=== PATIENT | male | born 1980 | race Caucasian/White ===

== ENCOUNTER → 2016-08-01 | Outpatient (CLI) | payer OTHER ==
--- NOTE | 2016-08-01 10:56 | REP ---
URINARY TRACT SONOGRAPHY AND RENAL ARTERY DOPPLER FLOW STUDY: HISTORY: Hypertension. MORPHOLOGIC FINDINGS: Scanning at the level of the urinary bladder shows no abnormality. Renal cortical echogenicity pattern is normal and contours are smooth on both sides. There is no evidence of hydronephrosis, mass, cyst or calculus on either side. The right kidney measures 106 x 4.1 x 6.1 cm. The left renal dimensions are 12.2 x 5.4 x 5.9 cm. IMPRESSION: No significant morphologic abnormality. RENAL ARTERY DOPPLER FLOW STUDY: Peak systolic flow velocity in the abdominal aorta at the level of the main renal arteries is normal at 122 cm/s. Peak systolic flow velocity recorded in the left main renal artery is 87 cm/s and that in the right main renal artery is 110 cm/s. These values are normal. Renal to aortic flow velocity ratios are therefore normal at 0.9 on the right and 0.7 on the left. Visualization of the most proximal segment of each renal artery is limited by patient body habitus. Resistive indices and acceleration times are measured in the upper, mid and lower pole intralobar arteries of each kidney and these values are normal bilaterally. IMPRESSION: No Doppler evidence to suggest renal artery stenosis. Signed by Kris Martinez MD 08/01/2016 04:34 P
== END ==
LOC: M RAD 06:26
PROVIDERS: ATTEND Family Medicine
DX: I10 Essential (primary) hypertension (principal)

== ENCOUNTER → 2016-08-17 | Outpatient (REF) | payer OTHER | LOC: M LAB REF 12:50 | PROVIDERS: ATTEND Physician Assistant Medical | DX: J11.1 Influenza due to unidentified influenza virus with other respiratory manifestations (principal) ==

== ENCOUNTER → 2016-10-24 | Outpatient (CLI) | payer OTHER ==
[2016-10-24 14:41] LABS: ANION GAP 8 MEQ/L (8-16); BLOOD UREA NITROGEN 15 MG/DL (7-18); CALCIUM LEVEL 9.3 MG/DL (8.5-10.1); CARBON DIOXIDE LEVEL 27 MEQ/L (21-32); CHLORIDE LEVEL 105 MEQ/L (98-107); CREATININE FOR GFR 1.14 MG/DL (0.70-1.30); GLOMERULAR FILTRATION RATE > 60.0 (>60); GLUCOSE, FASTING 100 MG/DL (70-105); POTASSIUM SERUM 4.1 MEQ/L (3.5-5.1); SODIUM LEVEL 140 MEQ/L (136-145)
== END ==
LOC: M SMT 09:04
PROVIDERS: ATTEND Family Medicine
DX: I10 Essential (primary) hypertension (principal)

== ENCOUNTER → 2017-01-15 | Outpatient (CLI) | payer OTHER | LOC: M SLEEP 19:58 | PROVIDERS: ATTEND Nurse Practitioner Adult Health | DX: G47.33 Obstructive sleep apnea (adult) (pediatric) (principal) ==

== ENCOUNTER → 2017-02-15 | Outpatient (CLI) | payer OTHER ==
--- NOTE | 2017-02-21 20:36 | SLEEPCENT ---
DATE OF PROCEDURE: 02/15/2017 ORDERING PROVIDER: Chantell Cruz NP Nocturnal polysomnography was performed for the titration of pressure therapy in this patient with obstructive sleep apnea, apnea-hypopnea index of 11. For testing, the patient was fit with a Resp[employer]ics Abril View full face mask of large size. 4 cm of water pressure were applied to the circuit and the lights were extinguished. 7 hours and 54 minutes of data were reviewed. There were 435 minutes of sleep identified. Sleep latency was prolonged at 19 minutes. Rapid eye movement (REM) latency was normal at 75 minutes. Sleep architecture was good with four REM periods appreciated. Overall sleep efficiency was 92.4%. Patient's EKG showed a sinus rhythm with an average heart rate of 54 beats per minute. EEG showed normal wave forms for wake and sleep. Respiratory events were best palliated with CPAP at a pressure of +12. CPAP tolerance was good. There were a few limb movements noted. Remaining measures of sleep physiology were normal. IMPRESSION: Obstructive sleep apnea syndrome (G47.33). RECOMMENDATIONS: Nightly use of pressure therapy 12 cm of water.
== END ==
LOC: M SLEEP 20:00
PROVIDERS: ATTEND Nurse Practitioner Adult Health
DX: G47.33 Obstructive sleep apnea (adult) (pediatric) (principal)

== ENCOUNTER → 2017-04-04 | Outpatient (REF) | payer OTHER | LOC: M LAB REF 17:10 | PROVIDERS: ATTEND Physician Assistant | DX: N23 Unspecified renal colic (principal) ==

== ENCOUNTER → 2017-04-23 | Outpatient (CLI) | payer OTHER ==
[2017-04-23 14:57] LABS: ALBUMIN 4.1 GM/DL (3.2-5.2); ALBUMIN/GLOBULIN RATIO 1.32 (1.00-1.93); ALKALINE PHOSPHATASE 89 U/L (45-117); ALT/SGPT 37 U/L (12-78); ANION GAP 7 MEQ/L (8-16); AST/SGOT 18 U/L (15-37); BILIRUBIN,TOTAL 0.6 MG/DL (0.2-1.0); BLOOD UREA NITROGEN 10 MG/DL (7-18); CARBON DIOXIDE LEVEL 28 MEQ/L (21-32); CHLORIDE LEVEL 105 MEQ/L (98-107); CREATININE FOR GFR 1.17 MG/DL (0.70-1.30); GLOMERULAR FILTRATION RATE > 60.0 (>60); GLUCOSE, FASTING 94 MG/DL (70-105); POTASSIUM SERUM 4.5 MEQ/L (3.5-5.1); SODIUM LEVEL 140 MEQ/L (136-145); TOTAL PROTEIN 7.2 GM/DL (6.4-8.2)
== END ==
LOC: M SMT 09:32
PROVIDERS: ATTEND Physician Assistant Medical
DX: I10 Essential (primary) hypertension (principal)

== ENCOUNTER → 2018-10-20 | Outpatient (REF) | payer OTHER ==
[2018-10-20 17:29] LABS: INFLUENZA A AMPLIFICATION NEGATIVE (NEGATIVE); INFLUENZA B AMPLIFICATION NEGATIVE (NEGATIVE)
== END ==
LOC: M LAB REF 09:17
PROVIDERS: ATTEND Nurse Practitioner Family
DX: J11.1 Influenza due to unidentified influenza virus with other respiratory manifestations (principal)

== ENCOUNTER → 2018-11-22 | Outpatient (CLI) | payer OTHER ==
[2018-11-22 10:54] LABS: ALBUMIN 3.8 GM/DL (3.2-5.2); ALT/SGPT 49 U/L (12-78); BILIRUBIN,TOTAL 0.3 MG/DL (0.2-1.0); BLOOD UREA NITROGEN 13 MG/DL (7-18); CALCIUM LEVEL 8.5 MG/DL (8.5-10.1); CARBON DIOXIDE LEVEL 30 MEQ/L (21-32); CHLORIDE LEVEL 106 MEQ/L (98-107); CHOLESTEROL LEVEL 176 MG/DL (<200); CHOLESTEROL RISK RATIO 3.666 (<5); CREATININE FOR GFR 1.15 MG/DL (0.70-1.30); FREE T4 1.03 NG/DL (0.76-1.46); GLOMERULAR FILTRATION RATE > 60.0 (>60); GLUCOSE, FASTING 87 MG/DL (70-100); HDL CHOLESTEROL 48 MG/DL (>40); LDL CHOLESTEROL 96.8 MG/DL (<100); NON-HDL-C 128 MG/DL; POTASSIUM SERUM 4.5 MEQ/L (3.5-5.1); SODIUM LEVEL 140 MEQ/L (136-145); TOTAL PROTEIN 7.1 GM/DL (6.4-8.2); TRIGLYCERIDES LEVEL 156 MG/DL (<150)
== END ==
LOC: M SMT 08:25
PROVIDERS: ATTEND Physician Assistant
DX: I10 Essential (primary) hypertension (principal)

== ENCOUNTER 2020-02-25 14:30 | Emergency (ER) | payer OTHER ==
[2020-02-25] MEDS ORDERED: ASPIRIN 325 MG TAB As Ordered ONE (15:23)
[2020-02-25] MEDS ORDERED: ASPIRIN 325 MG TAB ONE (15:23)
[2020-04-04 09:17] LABS: HEMATOCRIT 44.2 % (42.0-52.0); HEMOGLOBIN 15.4 g/dl (13.5-17.5); MEAN CORPUSCULAR HEMOGLOBIN 29.1 pg (27.0-33.0); MEAN CORPUSCULAR HGB CONC 34.8 g/dl (32.0-36.5); MEAN CORPUSCULAR VOLUME 83.6 fl (80.0-96.0); PLATELET COUNT, AUTOMATED 196 10^3/uL (150-450); RED BLOOD COUNT 5.29 10^6/uL (4.30-6.10); WHITE BLOOD COUNT 8.4 10^3/uL (4.0-10.0)
[2020-04-05 21:42] LABS: ALBUMIN 4.2 GM/DL (3.2-5.2); ALT/SGPT 53 U/L (12-78); BILIRUBIN,TOTAL 0.6 MG/DL (0.2-1.0); BLOOD UREA NITROGEN 10 MG/DL (7-18); CALCIUM LEVEL 9.4 MG/DL (8.5-10.1); CARBON DIOXIDE LEVEL 26 MEQ/L (21-32); CHLORIDE LEVEL 106 MEQ/L (98-107); CK-MB VALUE MASS < 1.0 NG/ML (<3.6); CPK CREATINE PHOSPHOKINASE 208 U/L (39-308); CREATININE FOR GFR 1.61 MG/DL (0.70-1.30); GLOMERULAR FILTRATION RATE 50.9 (>60); GLUCOSE, FASTING 94 MG/DL (70-100); MB/CK RELATIVE INDEX 0.48 (< OR =4); POTASSIUM SERUM 3.9 MEQ/L (3.5-5.1); SODIUM LEVEL 140 MEQ/L (136-145); TOTAL PROTEIN 7.3 GM/DL (6.4-8.2); TROPONIN I < 0.02 NG/ML (< 0.10)
[2020-04-05 22:11] LABS: CK-MB VALUE MASS < 1.0 NG/ML (<3.6); CPK CREATINE PHOSPHOKINASE 201 U/L (39-308); TROPONIN I < 0.02 NG/ML (< 0.10)
== END 2020-02-25 22:30 | disposition home or self-care (01) ==
LOC: M ED 14:30
DX: R07.89 Other chest pain (principal); Y35.391A Legal intervention involving other blunt objects, law enforcement official injured, initial encounter; Y92.89 Other specified places as the place of occurrence of the external cause; Y99.0 Civilian activity done for income or pay; Z79.899 Other long term (current) drug therapy; Z88.0 Allergy status to penicillin

== ENCOUNTER 2020-08-30 11:56 | Emergency (ER) | payer OTHER ==
[~2020-08-30] VITALS: Ht 177.8 cm; Wt 110.0 kg
[~2020-08-30 11:56] MED LIST: RALTEGRAVIR 400 MG TAB (ISENTRESS) PO SCH; TRUVADA 200MG/300MG TABLET PO SCH
--- OUTSIDE RECORDS SUMMARY | 2020-08-30 12:03 | CCD | Continuity of Care Document ---
Author Author [facility] Organization Unknown Address [address] [place] [address] Phone [phone] Care Team Providers Care Sr Risk Management Consultant Name Role Phone Katina Erazo DO AUTM Problems Description No Information Available Social History Type Date Description Comments Sex Unknown Allergies, Adverse Reactions, Alerts Description No Information Available Medications Description No Information Available Immunizations Description No Information Available Vital Signs Description No Information Available Results Description No Information Available Procedures Date Code Description Status 05/19/2020 11333 Manual Therapy Each 15 Minutes C ompleted 05/19/2020 53174 Therapeutic Procedure, Each 15 M inutes Completed 05/19/2020 80952 Electrical Stimulati on Manual, Each 15 Min, Constant Attendance Completed 05/17/2020 66879 Manual Therapy Each 15 Minutes C ompleted 05/17/2020 72658 Therapeutic Procedure, Each 15 M inutes Completed 05/14/2020 73135 Manual Therapy Each 15 Minutes C ompleted 05/14/2020 98787 Therapeutic Procedure, Each 15 M inutes Completed 05/11/2020 04441 Manual Therapy Each 15 Minutes C ompleted 05/11/2020 82942 Therapeutic Procedure, Each 15 M inutes Completed 05/07/2020 51057 Manual Therapy Each 15 Minutes C ompleted 05/07/2020 16472 Therapeutic Procedure, Each 15 M inutes Completed 05/05/2020 11612 Manual Therapy Each 15 Minutes C ompleted 04/29/2020 89516 Physical Therapy Eval - Low Comp lexity Completed Medical Devices Description No Information Available Encounters Description No Information Available Assessments Date Code Description Provider 05/19/2020 M54.6 Pain in thoracic spine Jordan Mata P.T. 05/17/2020 M54.6 Pain in thoracic spine Jordan Mata P.T. 05/14/2020 M54.6 Pain in thoracic spine Michele CoreyAndrea Canela, PT, DPT 05/11/2020 M54.6 Pain in thoracic spine Jordan Mata P.T. 05/07/2020 M54.6 Pain in thoracic spine Michele CoreyAndrea Canela, PT, DPT 05/05/2020 M54.6 Pain in thoracic spine Michele Canela, PT, DPT 04/29/2020 M54.6 Pain in thoracic spine Michele CroeyAndrea Canela, PT, DPT Plan of Treatment No Information Available Functional Status Description No Information Available Mental Status Description No Information Available Referrals Refer to Dr Reason for Referral Status Appt Date Sujata Doshi MD PT BACK OK TO [facility] 1ST SET PASSED TO PT DEPT. LS Created [address] [facility], [address] [place] [address] [phone]
--- OUTSIDE RECORDS SUMMARY | 2020-08-30 12:03 | CCD | Continuity of Care Document ---
Author Author [facility] Organization Unknown Address [address] [place] [address] Phone [phone] Care Team Providers Care Nascar Racer Name Role Phone Katina Erazo DO AUTM Problems Description No Information Available Social History Type Date Description Comments Sex Unknown Allergies, Adverse Reactions, Alerts Description No Information Available Medications Description No Information Available Immunizations Description No Information Available Vital Signs Description No Information Available Results Description No Information Available Procedures Date Code Description Status 05/19/2020 58826 Manual Therapy Each 15 Minutes C ompleted 05/19/2020 88657 Therapeutic Procedure, Each 15 M inutes Completed 05/19/2020 68485 Electrical Stimulati on Manual, Each 15 Min, Constant Attendance Completed 05/17/2020 61061 Manual Therapy Each 15 Minutes C ompleted 05/17/2020 53602 Therapeutic Procedure, Each 15 M inutes Completed 05/14/2020 43617 Manual Therapy Each 15 Minutes C ompleted 05/14/2020 27237 Therapeutic Procedure, Each 15 M inutes Completed 05/11/2020 63980 Manual Therapy Each 15 Minutes C ompleted 05/11/2020 77031 Therapeutic Procedure, Each 15 M inutes Completed 05/07/2020 50216 Manual Therapy Each 15 Minutes C ompleted 05/07/2020 56431 Therapeutic Procedure, Each 15 M inutes Completed 05/05/2020 19562 Manual Therapy Each 15 Minutes C ompleted 04/29/2020 37494 Physical Therapy Eval - Low Comp lexity [...] 04/29/2020 M54.6 Pain in thoracic spine Michele CoreyAndrea Canela, PT, DPT Plan of Treatment No Information Available Functional Status Description No Information Available Mental Status Description No Information Available Referrals Refer to Dr Reason for Referral Status Appt Date Sujata Doshi MD PT BACK OK TO [facility] 1ST SET PASSED TO PT DEPT. LS Created [address] [facility], [address] [place] [address] [phone]
--- OUTSIDE RECORDS SUMMARY | 2020-08-30 12:04 | CCD ---
Author Author [facility] Organization [facility] Address Unknown Phone Unavailable Care Team Providers Care Managing Partner [employer] Name Role Phone Mandappa, Noemí CASAC Unavailable Unavailable Mandappa, Noemí CASAC Unavailable Unavailable Mandappa, Noemí CASAC Unavailable Unavailable Mandappa, Noemí CASAC Unavailable Unavailable VanArnam, W Malick PA Unavailable Unavailable VanArnam, W Malick PA Unavailable Unavailable VanArnam, W Malick PA Unavailable Unavailable VanArnam, W Malick PA Unavailable Unavailable VanArnam, W Malick PA Unavailable Unavailable VanArnam, W Malick PA Unavailable Unavailable VanArnam, W Malick PA Unavailable Unavailable VanArnam, W Malick PA Unavailable Unavailable VanArnam, W Malick PA Unavailable Unavailable VanArnam, W Malick PA Unavailable Unavailable VanArnam, W Malick PA Unavailable Unavailable VanArnam, W Malick PA Unavailable Unavailable VanArnam, W Malick PA Unavailable Unavailable VanArnam, W Malick PA Unavailable Unavailable VanArnam, W Malick PA Unavailable Unavailable VanArnam, W Malick PA Unavailable Unavailable VanArnam, W Malick PA Unavailable Unavailable VanArnam, W Malick PA Unavailable Unavailable VanArnam, W Malick PA Unavailable Unavailable VanArnam, W Malick PA Unavailable Unavailable VanArnam, W Malick PA Unavailable Unavailable VanArnam, W Malick PA Unavailable Unavailable VanArnam, W Malick PA Unavailable Unavailable VanArnam, W Malick PA Unavailable Unavailable VanArnam, W Malick PA Unavailable Unavailable VanArnam, W Malick PA Unavailable Unavailable VanArnam, W Malick PA Unavailable Unavailable VanArnam, W Malick PA Unavailable Unavailable VanArnam, W Malick PA Unavailable Unavailable VanArnam, W Malick PA Unavailable Unavailable VanArnam, W Malick PA Unavailable Unavailable VanArnam, W Malick PA Unavailable Unavailable VanArnam, W Malick PA Unavailable Unavailable VanArnam, W Malick PA Unavailable Unavailable VanArnam, W Malick PA Unavailable Unavailable VanArnam, W Malick PA Unavailable Unavailable VanArnam, W Malick PA Unavailable Unavailable VanArnam, W Malick PA Unavailable Unavailable VanArnam, W Malick PA Unavailable Unavailable VanArnam, W Malick PA Unavailable Unavailable MEGHANA-ED, ASHER DO Unavailable Unavailable MEGHANA-ED, ASHER DO Unavailable Unavailable MEGHANA-ED, ASHER DO Unavailable Unavailable MEGHANA-ED, ASHER DO Unavailable Unavailable MEGHANA-ED, ASHER DO Unavailable Unavailable MEGHANA-ED, ASHER DO Unavailable Unavailable MEGHANA-ED, ASHER DO Unavailable Unavailable MEGHANA-ED, ASHER DO Unavailable Unavailable MEGHANA-ED, ASHER DO Unavailable Unavailable MEGHANA-ED, ASHER DO Unavailable Unavailable MEGHANA-ED, ASHER DO Unavailable Unavailable MEGHANA-ED, ASHER DO Unavailable Unavailable MEGHANA-ED, ASHER DO Unavailable Unavailable MEGHANA-ED, ASHER DO Unavailable Unavailable MEGHANA-ED, ASHER DO Unavailable Unavailable MEGHANA-ED, ASHER DO Unavailable Unavailable MEGHANA-ED, ASHER DO Unavailable Unavailable MEGHANA-ED, ASHER DO Unavailable Unavailable MEGHANA-ED, ASHER DO Unavailable Unavailable MEGHANA-ED, ASHER DO Unavailable Unavailable MEGHANA-ED, ASHER DO Unavailable Unavailable MEGHANA-ED, ASHER DO Unavailable Unavailable MEGHANA-ED, ASHER DO Unavailable Unavailable MEGHANA-ED, ASHER DO Unavailable Unavailable MEGHANA-ED, ASHER DO Unavailable Unavailable MEGHANA-ED, ASHER DO Unavailable Unavailable MEGHANA-ED, ASHER DO Unavailable Unavailable MEGHANA-ED, ASHER DO Unavailable Unavailable MEGHANA-ED, ASHER DO Unavailable Unavailable MEGHANA-ED, ASHER DO Unavailable Unavailable MEGHANA-ED, ASHER DO Unavailable Unavailable MEGHANA-ED, ASHER DO Unavailable Unavailable MEGHANA-ED, ASHER DO Unavailable Unavailable MEGHANA-ED, ASHER DO Unavailable Unavailable MEGHANA-ED, ASHER DO Unavailable Unavailable MEGHANA-ED, ASHER DO Unavailable Unavailable MEGHANA-ED, ASHER DO Unavailable Unavailable MEGHANA-ED, ASHER DO Unavailable Unavailable MEGHANA-ED, ASHER DO Unavailable Unavailable MEGHANA-ED, ASHER DO Unavailable Unavailable MEGHANA-ED, ASHER DO Unavailable Unavailable MEGHANA-ED, ASHER DO Unavailable Unavailable MEGHANA-ED, ASHER DO Unavailable Unavailable MEGHANA-ED, ASHER DO Unavailable Unavailable MEGHANA-ED, ASHER DO Unavailable Unavailable MEGHANA-ED, ASHER DO Unavailable Unavailable MEGHANA-ED, ASHER DO Unavailable Unavailable MEGHANA-ED, ASHER DO Unavailable Unavailable MEGHANA-ED, ASHER DO Unavailable Unavailable MEGHANA-ED, ASHER DO Unavailable Unavailable MEGHANA-ED, ASHER DO Unavailable Unavailable MEGHANA-ED, ASHER DO Unavailable Unavailable MEGHANA-ED, ASHER DO Unavailable Unavailable MEGHANA-ED, ASHER DO Unavailable Unavailable MEGHANA-ED, ASHER DO Unavailable Unavailable MEGHANA-ED, ASHER DO Unavailable Unavailable MEGHANA-ED, ASHER DO Unavailable Unavailable MEGHANA-ED, ASHER DO Unavailable Unavailable MEGHANA-ED, ASHER DO Unavailable Unavailable MEGHANA-ED, ASHER DO Unavailable Unavailable MEGHANA-ED, ASHER DO Unavailable Unavailable MEGHANA-ED, ASHER DO Unavailable Unavailable MEGHANA-ED, ASHER DO Unavailable Unavailable MEGHANA-ED, ASHER DO Unavailable Unavailable MEGHANA-ED, ASHER DO Unavailable Unavailable MEGHANA-ED, ASHER DO Unavailable Unavailable MEGHANA-ED, ASHER DO Unavailable Unavailable MEGHANA-ED, ASHER DO Unavailable Unavailable MEGHANA-ED, ASHER DO Unavailable Unavailable MEGHANA-ED, ASHER DO Unavailable Unavailable MEGHANA-ED, ASHER DO Unavailable Unavailable MEGHANA-ED, ASHER DO Unavailable Unavailable MEGHANA-ED, ASHER DO Unavailable Unavailable MEGHANA-ED, ASHER DO Unavailable Unavailable MEGHANA-ED, ASHER DO Unavailable Unavailable MEGHANA-ED, ASHER DO Unavailable Unavailable MEGHANA-ED, ASHER DO Unavailable Unavailable MEGHANA-ED, ASHER DO Unavailable Unavailable MEGHANA-ED, ASHER DO Unavailable Unavailable MEGHANA-ED, ASHER DO Unavailable Unavailable MEGHANA-ED, ASHER DO Unavailable Unavailable MEGHANA-ED, ASHER DO Unavailable Unavailable KELLY, E BENIGNO DURAN Unavailable Unavailable KELLY, E BENIGNO DURAN Unavailable Unavailable KELLY, E BENIGNO DURAN Unavailable Unavailable KELLY, E BENIGNO DURAN Unavailable Unavailable KELLY, E BENIGNO DURAN Unavailable Unavailable KELLY, E BENIGNO DURAN Unavailable Unavailable KELLY, E BENIGNO DURAN Unavailable Unavailable KELLY, E BENIGNO DURAN Unavailable Unavailable KELLY, E BENIGNO DURAN Unavailable Unavailable KELLY E BENIGNO DURAN Unavailable Unavailable KELLY E BENIGNO DURAN Unavailable Unavailable KELLY, E BENIGNO DURAN Unavailable Unavailable KELLY, E BENIGNO DURAN Unavailable Unavailable KELLY, E BENIGNO DURAN Unavailable Unavailable KELLY E BENIGNO DURAN Unavailable Unavailable KELLY E BENIGNO DURAN Unavailable Unavailable KELLY E BENIGNO DURAN Unavailable Unavailable KELLY E BENIGNO DURAN Unavailable Unavailable KELLY, E BENIGNO DURAN Unavailable Unavailable KELLY, E BENIGNO DURAN Unavailable Unavailable KELLY, E BENIGNO DURAN Unavailable Unavailable KELLY, E BENIGNO DURAN Unavailable Unavailable KELLY, E BENIGNO DURAN Unavailable Unavailable KELLY, E BENIGNO DURAN Unavailable Unavailable KELLY, E BENIGNO DURAN Unavailable Unavailable KELLY, E BENIGNO DURAN Unavailable Unavailable KELLY, E BENIGNO DURAN Unavailable Unavailable KELLY E BENIGNO DURAN Unavailable Unavailable KELLY E BENIGNO DURAN Unavailable Unavailable KELLY E BENIGNO DURAN Unavailable Unavailable KELLY E BENIGNO DURAN Unavailable Unavailable KELLY E BENIGNO DURAN Unavailable Unavailable KELLY E BENIGNO DURAN Unavailable Unavailable KELLY E BENIGNO DURAN Unavailable Unavailable KELLY E BENIGNO DURAN Unavailable Unavailable KELLY E BENIGNO DURAN Unavailable Unavailable KELLY E BENIGNO DURAN Unavailable Unavailable KELLY E BENIGNO DURAN Unavailable Unavailable KELLY E BENIGNO DURAN Unavailable Unavailable KELLY, E BENIGNO DURAN Unavailable Unavailable KELLY E BENIGNO DURAN Unavailable Unavailable KELLY E BENINGO DURAN Unavailable Unavailable KELLY, E BENIGNO DURAN Unavailable Unavailable KELLY E BENIGNO DURAN Unavailable Unavailable KELLY E BENIGNO DURAN Unavailable Unavailable KELLY, E BENIGNO DURAN Unavailable Unavailable KELLY Elisa PELAEZ MD Unavailable Unavailable KELLY E BENIGNO MD Unavailable Unavailable Elisa KELLY MD Unavailable Unavailable Elisa KELLY MD Unavailable Unavailable Elisa KELLY MD Unavailable Unavailable Elisa KELLY MD Unavailable Unavailable Elisa KELLY MD Unavailable Unavailable Elisa KELLY MD Unavailable Unavailable Elisa KELLY MD Unavailable Unavailable Elisa KELLY MD Unavailable Unavailable Elisa KELLY MD Unavailable Unavailable Awilda IRWIN MD Unavailable Unavailable Awilda IRWIN MD Unavailable Unavailable Awilda IRWIN MD Unavailable Unavailable Awilda IRWIN MD Unavailable Unavailable Awilda IRWIN MD Unavailable Unavailable Awilda IRWIN MD Unavailable Unavailable Awilda IRWIN MD Unavailable Unavailable Awilda IRWIN MD Unavailable Unavailable Awilda IRWIN MD Unavailable Unavailable Awilda IRWIN MD Unavailable Unavailable Awilda IRWIN MD Unavailable Unavailable Awilda IRWIN MD Unavailable Unavailable Awilda IRWIN MD Unavailable Unavailable Awilda IRWIN MD Unavailable Unavailable Awilda IRWIN MD Unavailable Unavailable Awilda IRWIN MD Unavailable Unavailable Awilda IRWIN MD Unavailable Unavailable Awilda IRWIN MD Unavailable Unavailable Awilda IRWIN MD Unavailable Unavailable Awilda IRWIN MD Unavailable Unavailable Awilda IRWIN MD Unavailable Unavailable Awilda IRWIN MD Unavailable Unavailable Awilda IRWIN MD Unavailable Unavailable Awilda IRWIN MD Unavailable Unavailable Awilda IRWIN MD Unavailable Unavailable Awilda IRWIN MD Unavailable Unavailable Awilda IRWIN MD Unavailable Unavailable Awilda IRWIN MD Unavailable Unavailable Awilda IRWIN MD Unavailable Unavailable Awilda IRWIN MD Unavailable Unavailable Awilda IRWIN MD Unavailable Unavailable Awilda IRWIN MD Unavailable Unavailable Awilda IRWIN MD Unavailable Unavailable Awilda IRWIN MD Unavailable Unavailable Awilda IRWIN MD Unavailable Unavailable Awilda IRWIN MD Unavailable Unavailable Awilda IRWIN MD Unavailable Unavailable Awilda IRWIN MD Unavailable Unavailable Awilda IRWIN MD Unavailable Unavailable Awilda IRWIN MD Unavailable Unavailable Awilda IRWIN MD Unavailable Unavailable Awilda IRWIN MD Unavailable Unavailable Awilda IRWIN MD Unavailable Unavailable Awilda IRWIN MD Unavailable Unavailable Awilda IRWIN MD Unavailable Unavailable Awilda IRWIN MD Unavailable Unavailable Awilda IRWIN MD Unavailable Unavailable Awilda IRWIN MD Unavailable Unavailable Awilda IRWIN MD Unavailable Unavailable Awilda IRWIN MD Unavailable Unavailable Awilda IRWIN MD Unavailable Unavailable Awilda IRWIN MD Unavailable Unavailable Awilda IRWIN MD Unavailable Unavailable Awilda IRWIN MD Unavailable Unavailable Awilda IRWIN MD Unavailable Unavailable Awilda IRWIN MD Unavailable Unavailable Awilda IRWIN MD Unavailable Unavailable Awilda IRWIN MD Unavailable Unavailable Awilda RIWIN MD Unavailable Unavailable Awilda IRWIN MD Unavailable Unavailable Awilda IRWIN MD Unavailable Unavailable Awilda IRWIN MD Unavailable Unavailable Awilda IRWIN MD Unavailable Unavailable Awilda IRWIN MD Unavailable Unavailable Awilda IRWIN MD Unavailable Unavailable Awilda IRWIN MD Unavailable Unavailable Awilda IRWIN MD Unavailable Unavailable Awilda IRWIN MD Unavailable Unavailable Awilda IRWIN MD Unavailable Unavailable Awilda IRWIN MD Unavailable Unavailable Awilda IRWIN MD Unavailable Unavailable Awilda IRWIN MD Unavailable Unavailable Awilda IRWIN MD Unavailable Unavailable Awilda IRWIN MD Unavailable Unavailable Awilda IRWIN MD Unavailable Unavailable Awilda IRWIN MD Unavailable Unavailable Awilda IRWIN MD Unavailable Unavailable Awilda IRWIN MD Unavailable Unavailable Awilda IRWIN MD Unavailable Unavailable Awilda IRWIN MD Unavailable Unavailable Awilda IRWIN MD Unavailable Unavailable Awilda IRWIN MD Unavailable Unavailable Awilda IRWIN MD Unavailable Unavailable Awilda IRWIN MD Unavailable Unavailable Awilda IRWIN MD Unavailable Unavailable Awilda IRWIN MD Unavailable Unavailable Awilda IRWIN MD Unavailable Unavailable Awilda IRWIN MD Unavailable Unavailable Awilda IRWIN MD Unavailable Unavailable Awilda IRWIN MD Unavailable Unavailable Awilda IRWIN MD Unavailable Unavailable Awilda IRWIN MD Unavailable Unavailable Awilda IRWIN MD Unavailable Unavailable Awilda IRWIN MD Unavailable Unavailable Awilda IRWIN MD Unavailable Unavailable Awilda IRWIN MD Unavailable Unavailable Re-disclosure Warning The records that you are about to access may contain information from federally-assisted alcohol or drug abuse programs. If such information is present, then the following federally mandated warning applies: This information has been disclosed to you from records protected by federal confidentiality rules (42 CFR part 2). The federal rules prohibit you from making any further disclosure of this information unless further disclosure is expressly permitted by the written consent of the person to whom it pertains or as otherwise permitted by 42 CFR part 2. A general authorization for the release of medical or other information is NOT sufficient for this purpose. The Federal rules restrict any use of the information to criminally investigate or prosecute any alcohol or drug abuse patient.The records that you are about to access may contain highly sensitive health information, the redisclosure of which is protected by Article 27-F of the [facility] Public Health law. If you continue you may have access to information: Regarding HIV / AIDS; Provided by facilities licensed or operated by the [facility] Office of Mental Health; or Provided by the [facility] Office for People With Developmental Disabilities. If such information is present, then the following [facility] mandated warning applies: This information has been disclosed to you from confidential records which are protected by state law. State law prohibits you from making any further disclosure of this information without the specific written consent of the person to whom it pertains, or as otherwise permitted by law. Any unauthorized further disclosure in violation of state law may result in a fine or nursing home sentence or both. A general authorization for the release of medical or other information is NOT sufficient authorization for further disc losure. Family History Family Member Name Family Member Gender Family Member Status Date o f Status Description Data Source(s) Unknown Male Problem [facility] Unknown Female Problem [facility] ([facility]) Encounters Encounter Providers Location Date Indications Data Source(s ) Outpatient Attender: Malick Fryer: ASHER BLACKWOOD DO 05/28/2020 10:18:53 AM EDT [facility] Recurring Patient Referrer: ED IRWIN MD 0 09:21:17 AM EDT [facility] Outpatient Attender: BENIGNO KELLY MD Main Office 05/18/2020 09:30:00 AM EDT [facility] ([facility]) Outpatient Attender: ED WAGNEReferrer: ASHER CHANDLER DO 04/09/2020 01:18:53 PM EDT [facility] Recurring Patient Referrer: ED IRWIN MD 0 01:22:23 PM EDT [facility] Recurring Patient Referrer: ED IRWIN MD 0 11:30:40 AM EDT [facility] Outpatient Attender: ED IRWIN MDReferrer: ASHER CHANDLER DO 03/12/2020 04:43:23 PM EDT [facility] Recurring Patient Referrer: ED IRWIN MD 0 02:08:59 PM EDT [facility] Recurring Patient Referrer: ED IRWIN MD 0 03:38:39 PM EDT [facility] Recurring Patient Referrer: ED IRWIN MD 0 03:06:57 PM EDT [facility] Recurring Patient Referrer: ED IRWIN MD 0 03:06:47 PM EDT [facility] Recurring Patient Referrer: ED IRWIN MD 0 03:06:31 PM EDT [facility] Recurring Patient Referrer: ED IRWIN MD 0 02:59:09 PM EDT [facility] Recurring Patient Referrer: ED IRWIN MD 0 01:32:00 PM EDT [facility] Recurring Patient Referrer: Noemí PHILLIPS 03/08/2020 01:28:08 PM EDT [facility] Recurring Patient Referrer: Noemí PHILLIPS 03/08/2020 01:24:37 PM EDT [facility] Outpatient Attender: BENIGNO KELLY MD Main Office 03/05/2020 09:30:00 AM EDT [facility] ([facility]) Medications Medication Brand Name Start Date Product Form Dose Route Admi nistrative Instructions Pharmacy Instructions Status Indications Reaction Description Data Source(s) Losartan Potassium 50 MG Oral Tablet Losartan Potassium 12/2019 12:00:00 AM EDT ORAL active [facility] ([facility] Insurance Providers Payer name Policy type / Coverage type Policy ID Covered green party ID Covered green party's relationship to altamirano Policy [employer] Plan Information [employer] WORK COMP SP UMR [facility] [id number] SP [id number] UMR F [id number] SELF [id number] [employer] O [id number] S [id number] [employer] O UNAVAILABLE S UNAVAI LABLE UMR O [id number] S [id number] OTHER WORKERS COMPENSATI O [id number] O [id number] OTHER WORKERS COMPENSATION [id number] SP [id number] [employer] [id number] Self [id number] Umr Medigap Part B [id number] Self [id number] UMR [facility] [id number] SP [id number] [employer] Commercial [id number] Self [id number] [employer] Commercial [id number] Self [id number] Umr Medigap Part B [id number] Self [id number] [employer] Commercial [id number] Self [id number] UMR O [id number] S [id number] [employer] PPO O [id number] O [id number] [employer] Commercial [id number] Self [id number] [employer] Commercial [id number] Self [id number] POMCO [id number] SP [id number] [employer] Commercial [id number] Self [id number] [employer] Commercial [id number] Self [id number] [employer] Commercial [id number] Self [id number] [employer] Commercial [id number] Self [id number] [employer] Commercial [id number] Self [id number] [employer] Commercial [id number] Self [id number] Problems, Conditions, and Diagnoses Code Display Name Description Problem Type Effective Dates Data Source(s) 05776585 Benign hypertensive heart disease withou t congestive heart failure Benign hypertensive heart disease without congestive heart failure Problem 05/18/2020 12:00:00 AM EDT [facility] [id number] Electrocardiogram abnormal Electrocardiogram abnormal Problem 03/05/2020 12:00:00 AM EDT [facility] ([facility]) [id number] Palpitations Palpitations Problem 03/05/2020 12:00:00 A M EDT [facility] ([facility]) [id number] Chronic bronchitis Chronic bronchitis Problem 01/2020 12:00:00 AM EDT [facility] ([facility]) [id number] Obstructive sleep apnea syndrome Obstructive sle ep apnea syndrome Problem 03/05/2020 12:00:00 AM EDT [facility] ([facility] [id number] Essential hypertension Essential hypertension Problem 03/05/2020 12:00:00 AM EDT [facility] ([facility]) [id number] Dyspnea Dyspnea Problem 03/05/2020 12:00:00 AM ED T [facility] ([facility]) [id number] Precordial pain Precordial pain Problem 03/05/2020 12:0 0:00 AM EDT [facility] ([facility]) Surgeries/Procedures Procedure Description Date Indications Data Source(s) APPL MODALITY 1/> AREAS ELEC STIMJ EA 15 MIN 0 12:00:00 AM EDT [facility] ([facility] ) THERAPEUTIC PX 1/> AREAS EACH 15 MIN EXERCISES 12:00:00 AM EDT [facility] ([facility] ) MANUAL THERAPY TQS 1/> REGIONS EACH 15 MINUTES 12:00:00 AM EDT [facility] ([facility] ) THERAPEUTIC PX 1/> AREAS EACH 15 MIN EXERCISES 12:00:00 AM EDT [facility] ([facility] ) MANUAL THERAPY TQS 1/> REGIONS EACH 15 MINUTES 12:00:00 AM EDT [facility] ([facility] ) THERAPEUTIC PX 1/> AREAS EACH 15 MIN EXERCISES 12:00:00 AM EDT [facility] ([facility] ) MANUAL THERAPY TQS 1/> REGIONS EACH 15 MINUTES 12:00:00 AM EDT [facility] ([facility] ) THERAPEUTIC PX 1/> AREAS EACH 15 MIN EXERCISES 12:00:00 AM EDT [facility] ([facility] ) MANUAL THERAPY TQS 1/> REGIONS EACH 15 MINUTES 12:00:00 AM EDT [facility] ([facility] ) THERAPEUTIC PX 1/> AREAS EACH 15 MIN EXERCISES 12:00:00 AM EDT [facility] ([facility] ) MANUAL THERAPY TQS 1/> REGIONS EACH 15 MINUTES 12:00:00 AM EDT [facility] ([facility] ) MANUAL THERAPY TQS 1/> REGIONS EACH 15 MINUTES 12:00:00 AM EDT [facility] ([facility] ) Physical Therapy Eval - Low Complexity 04/29/2020 12:0 0:00 AM EDT [facility] ([facility] ) CV STRS TST XERS&/OR RX CONT ECG PHYS SI&R 04/21/2020 12:00:00 AM EDT [facility] ([facility]) ECHO TTHRC R-T 2D W/WOM-MODE COMPL SPEC&COLR DOP 04/21 12:00:00 AM EDT [facility] ([facility]) XTRNL PT ACTIVATED ECG RECORD MONITOR 30 DAYS 04/12/20 20 12:00:00 AM EDT [facility] ([facility]) XTRNL PT ACTIVTD ECG DWNLD 30 DAYS PHYS R&I 04/12/2020 12:00:00 AM EDT [facility] ([facility]) ECG ROUTINE ECG W/LEAST 12 LDS W/I&R 03/05/2020 12:00: 00 AM EDT [facility] ([facility]) Results ID Date Data Source [id number] 05/28/2020 10:18:53 AM EDT [facility]Name: Deanne PiedraDOB: 1980Provider: Patricia Richmond: 05/21/2020 Reason For VisitMatthew Dorothea is an established patient here for follow up. patient states he has been going to PT and doing HEP. The patient is currently residing at home. W.C. DOI: 02/25/2020. Patient states the injury occurred while at work. Patient states he was trying to subdue a criminal. 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 History of Present IllnessPatient is a 40-year-old male presents to the office with a chief complaint of constant ache in the thoracic spine region. Pain is rated 2-3 out of 10. Associate with occasional radiating pain into his left ribs. Denies any additional radicular symptoms. Has been attending physical therapy for the past 3 weeks. Seeing improvement of his symptoms. Aggravated with prolonged positions and lifting. Results/Data OtherMRI thoracic SOS 04/09/2020: Multilevel DDD. T5-6 protrusion; left T6-T7 p rotrusion. No significant central stenosis. AssessmentMid back painT5-6 and a left T6-7 HNP Plan Work Note WC (SOS) Treatment Treatment Status: Complete Done: 21May2020 Ordered;For: Health Maintenance; Ordered By: Malick Richmond Performed: Due: 04Jun2020; Last Updated By: Noemí Cruz; 05/21/2020 10:00:09 AMRestrictions : noneOut Of Work Until: : 05/21/2020Condition Due To Work Related Injury Of: : 02/25/2020Works Status : Patient to resume full dutyNext Appt : n/Farzad Today for Evaluation and Treatment : The patient was seen today in the office for evaluation and treatment. Plan, Assessment and Recommendation(s) The nature of the diagnosis and various treatment alternatives were discussed today, including invasive, operative, and non- operative options. Acute thoracic spine pain secondary to work-related injury. Symptoms improved with physical therapy. He will finish out physical therapy and continue with home exercises. He is asking for a full duty work note. Follow-up as needed. Work / School NoteThe percentage of temporary impairment is 25%. The patient is working at this time. The patient is to resume regular work on 05/21/20. This document was dictated and electronically signed using [employer] software. A reasonable attempt at proof reading has been made to minimize errors. Please call with any questions. Signatures Electronically signed by : Lise Cherry; May 28 2020 8:30AM EST (Author) Electronically signed by : Ed Irwin M.D.; May 28 2020 10:18AM EST Name Value Range Interpretation Code Description Data Lizz rce(s) Supporting Document(s) ID Date Data Source [id number] 04/09/2020 01:18:53 PM EDT [facility] PCName: Deanne Richey: 1980Provider: Robi Irwin: 04/09/2020 History of Present IllnessPatient is seen in follow up from last visit. Since last visit he has been evaluated with an MRI and seeing a Chiropractor. No new significant clinical changes compared to last office visit thoracic back painLocalized around the T5-T6 areaChiropractor here with Dr. Carnes-temporary relief The patient complains of pain in the thoracic spine. The pain radiates to the left chest wall and T6 distribution. The patient denies signs of bladder dysfunction, bowel dysfunction, cancer/metastasis, infection and myelopathy . Patient's pain is achy . The pain severity is rated 4 out of 10. The pain is aggravated by activity . There is no numbness or weakness. Results/Data OtherMRI thoracic SOS 04/09/2020: Multilevel DDD. T5-6 protrusion; left T6-T7 protrusion. No significant central stenosis.Reviewed in detail the results of the diagnostic testing. Reviewed the pertinent applicable clinical implications relating to the patient. Also provided a copy of the results for their personal records. Assessment 1. Thoracic back pain (724.1) (M54.6) 2. HNP (herniated nucleus pulposus), thoracic (722.11) (M51.24) Condition: Acuteetiology: Workers comp injury as abovelevels: T5-T6, T6-T7 Plan Physical Therapy (SOS) - Spinal WC Physical Therapy Evaluation and Treatment Status:Complete Done: [id number] Ordered;For: Thoracic back pain; Ordered By: Ed Irwin Performed: Order Comments: 02/25/20 thoracic spine Due: [id number]; Last Updated By: Lyly Mcguire; 04/09/2020 10:46:00 AMDuration: : Four WeeksPT Frequency : Two or three times a weekTraction Needed : NoSOS ROM and Strength : Range of motion and strengthening exercises.Heat Ultra and Modalities : Heat Ultrasound and modalities as indicatedEvaluate and Treat: : Please evaluate and treat as indicated. Work Note WC (SOS) Treatment Treatment Status: Complete Done: [id number] Ordered;For: Thoracic back pain; Ordered By: Ed Irwin Performed: Due: [id number]; Last Updated By: Lyly Mcguire; 04/09/2020 10:48:36 AMNotify Employer of Restrictions : It is your responsibility to advise your employer of these restrictions, please be aware they may or may not be able to accommodate your restrictions. These restrictions apply to this diagnosis only.Restrictions : no lifting > 20 lbs + no altercationsCondition Due To Work Related Injury Of: : 02/25/20 thoracic spineWorks Status : Patient to resume light dutyNext Appt : in 6 wksSeen Today for Evaluation and Treatment : The patient was seen today in the office for evaluation and treatment. Plan, Assessment and Recommendation(s) Schedule Appointment: Weeks: 6 The various alternatives and treatment options were discussed with pros and cons, risks, and potential benefits of each option reviewed. The various options reviewed include physical therapy, student career development specialist, Pharmacologic treatment and pain management. He wishes to proceed with physical therapy. I will send the patient for formal physical therapy. Requests PT Work / School NoteThe percentage of temporary impairment is 25%. The patient is working at this time. This document was dictated and electronically signed using [employer] software. A reasonable attempt at proof reading has been made to minimize errors. Please call with any questions. Signatures Electronically signed by : Ed Irwin M.D.; Apr 09 2020 1:18PM EST (Author) Name Value Range Interpretation Code Description Data Lizz rce(s) Supporting Document(s) ID Date Data Source [id number] 04/09/2020 12:17:00 PM EDT [facility] PATIENT MR#: [id number] NAME: Deanne Lynch TDATE OF : 1980REFERRING PHYSICIAN: Ed IrwinEXAM DATE: 04/09/2020EXAM: THORACIC SPINE MRIINDICATION: Left mid back pain. Injury 02/25/2020.COMPARISON: Thoracic spine radiographs 03/12/2020TECHNIQUE: MRI scan was performed using various scan planes and pulse sequences.FINDINGS: Normal sagittal alignment. Vertebral body heights are maintained. Left T7 andright T7 vertebral body increased T1 signal at least partial fat intensityhemangiomas with partial increased STIR signal, which would make him "atypical"but still benign hemangiomas. Mild to moderate T3-T4, T5-T6, T6-T7, T7-T8, andT8-T9 disc space narrowing. No acute fracture or destructive bone lesion. Thethoracic cord demonstrates normal signal and caliber. The conus terminates atthe T12-L1 level.T1-T2: Facet joint hypertrophy contributes to mild left neuroforaminalnarrowing.T3-T4: Mild bilateral facet joint hypertrophy. Bilobed posterior disc bulgecontacts the ventral cord. CSF is still seen posterior to the cord. Nosignificant neuroforaminal stenosis.T4-T5: Bilobed posterior disc bulge contributes to moderate narrowing of thelateral recesses. No significant central canal stenosis. No significantneuroforaminal stenosis.T5-T6: Midline posterior disc protrusion mildly impresses on the ventral cord. Adequate CSF is still seen posterior to the cord. No neural foraminal stenosis.T6-T7: Mild left paracentral posterior disc protrusion contacts the ventral cordwith slight mass- effect. No central canal or neuroforaminal stenosis.T7-T8: Right greater than left posterior disc bulge contacts the right ventralcord. Mild right lateral recess narrowing. No central canal or neuroforaminalstenosis.T10-T11: Facet joint hypertrophy contributes to mild right neuroforaminalstenosis.No significant abnormality is seen within the paraspinal soft tissues.IMPRESSION: 1. Multilevel degenerative disc and joint changes as above.2. Mild left T1-T2 and mild right T10-T11 neural foraminal stenosis.Age of findings: Likely chronic.Read by: Jarred Meredtih by: Jarred Meredith Date: 04/09/2020 12:17:28 PMElectronically signed by: Jarred Sheffield signed: 04/09/2020 12:18:09 PM Name Value Range Interpretation Code Description Data Lizz rce(s) Supporting Document(s) ID Date Data Source [id number] 03/12/2020 04:43:23 PM EDT [facility] PCName: [facility]: 1980Provider: Robi Irwin: 03/12/2020 History of Present IllnessThoracic back painLocalized around the T5-T6 areaChiropractor here with Dr. Carnes-temporary relief The patient complains of pain in the thoracic spine. The pain radiates to chest wall and T4 distribution. The patient denies signs of bladder dysfunction, bowel dysfunction, cancer/metastasis, infection and myelopathy . Patient's pain is achy . The pain severity is rated 4 out of 10. The pain is aggravated by activity . There is no numbness or weakness. Results/DataXRays were ordered, obtained and interpreted today in the office. Indication: pain/dysfunction. Site: Thoracic Spine Views: 2 Views, AP/Lateral Standing Findings:. degenerative disc disease of a mild degree. Marker T5-T6 area Assessment 1. Thoracic back pain (724.1) (M54.6) Condition: Acuteetiology: Workers comp injury as abovelevels: T5-T6 Plan X-Ray I Thoracic Spine - 2 views (XRays were ordered, obtained and interpreted today inthe office. Indication: pain/dysfunction.); Status:Complete; Done: 12Mar2020 Perform:SOS22; Due:26Mar2020; Last Updated By:Abigail Woodall; 03/12/2020 2:29:05 PM;Ordered; For:Mid back pain; Ordered By:Ed Irwin;ari MRI (SOS) WC Referral Diagnostic Diagnostic Status: Hold For - WC Scheduling (SOS) Requested for: 12Mar2020 Ordered;For: Mid back pain; Ordered By: Ed Irwin Performed: Due: 26Mar2020; Last Updated By: Natalie Carlos; 03/12/2020 2:44:44 PMPatient will follow up with: : Dr Jones Ordered Contrast : 01: without gadoLaterality: : _Not Applicable Work Note (SOS) Treatment Treatment Status: Complete Done: 12Mar2020 Ordered;For: Health Maintenance; Ordered By: Ed Irwin Performed: Order Comments: May return to work on 03/12/2020 light duty- restrictions include no lifting greater than 20 pounds and no altercations Due: 26Mar2020; Last Updated By: Natalie Carlos; 03/12/2020 2:43:20 PMComments : May return to work on 03/12/2020 light duty- restrictions include no lifting greater than 20 pounds and no altercationsResume : May return to work on 03/12/2020 light duty- restrictions include no lifting greater than 20 pounds and no altercationsNotify Employer of Restrictions : It is your responsibility to advise your employer of these restrictions, please be aware they may or may not be able to accommodate your restrictions. These restrictions apply to this diagnosis only.Restrictions : May return to work on 03/12/2020 light duty- restrictions include no lifting greater than 20 pounds and no altercationsWorks Status : Patient to resume light dutySeen Today for Evaluation and Treatment : The patient was seen today in the office for evaluation and treatment. The various alternatives and treatment options were discussed with pros and cons, risks, and potential benefits of each option reviewed. He wishes to proceed with student career development specialist. He requires further work up to include MRI Thoracic Spine. Requests MRI continue chiropractic treatment MRI thoracic requested to further delineate/clarify the etiology of the patient's complaints and to further assist in delineating future treatment algorithm. Work / School NoteThe percentage of temporary impairment is 25%. The patient is not working at this time. Deanne will return to work on 03/12/2020. Return to work with the following restrictions: Limited lifting restriction nothing greater than 20 Lbs. No altercations This document was dictated and electronically signed using [employer] software. A reasonable attempt at proof reading has been made to minimize errors. Please call with any questions. Signatures Electronically signed by : Ed Irwin M.D.; Mar 12 2020 4:43PM EST (Author) Name Value Range Interpretation Code Description Data Lizz rce(s) Supporting Document(s) ID Date Data Source [id number] 02/25/2020 02:54:00 PM EDT [facility] Name Value Range Interpretation Code Description Data Lizz rce(s) Supporting Document(s) Albumin [Mass/volume] in Serum or Plasma 4.2 [facility] ([facility]) Alanine aminotransferase [Enzymatic activity/volume] in Serum or Pl asma 53 [facility] ([facility]) Calcium [Mass/volume] in Serum or Plasma 9.4 [facility] ([facility]) Carbon dioxide, total [Moles/volume] in Serum or Plasma 26 [facility] ([facility]) Potassium [Moles/volume] in Serum or Plasma 3.9 [facility] ([facility]) Chloride [Moles/volume] in Serum or Plasma 106 [facility] ([facility]) Alkaline phosphatase [Enzymatic activity/volume] in Serum or Plasma 1 11 [facility] ([facility]) Protein [Mass/volume] in Serum or Plasma 7.3 [facility] ([facility]) Sodium 140 [facility] Urea nitrogen [Mass/volume] in Serum or Plasma 10 [facility]) Aspartate aminotransferase [Enzymatic activity/volume] in Serum or Plasma 25 [facility]) Glucose 94 70-100 [facility]) Creatinine For GFR 1.61 [facility]) ID Date Data Source [id number] 02/25/2020 02:54:00 PM EDT [facility]) Name Value Range Interpretation Code Description Data Lizz rce(s) Supporting Document(s) White Blood Count 8.42 4.3-10.9 [facility]) Red Blood Count 5.29 4.70-6.20 [facility]) Platelets 196 130-400 [facility] Hemoglobin 15.4 13.0-17.0 [facility]) Hematocrit 44.2 39.0-50.0 [facility] ([facility]) Procedure Social History Code Duration Value Status Description Data Source(s ) Smoking 05/18/2020 12:00:00 AM EDT Patient is a former smoker completed Patient is a former smoker [facility]) Vital Signs ID Date Data Source UNK Name Value Range Interpretation Code Description Data Source(s) Diastolic blood pressure--supine 76 mm[Hg] 76 mm[Hg] [facility] Systolic blood pressure--supine 128 mm[Hg] 128 mm[Hg] [facility]) Diastolic blood pressure--sitting 72 mm[Hg] 72 mm[Hg] [facility] ([facility]) large cuff, Ra Systolic blood pressure--sitting 124 mm[Hg] 124 mm[Hg] [facility] ([facility]) large cuff, Ra Respiratory rate 16 /min 16 /min [facility] ( [facility]) Heart rate 56 /min 56 /min [facility] ([facility]) regular Body mass index (BMI) [Ratio] 35.3 kg/m2 35.3 k g/m2 [facility]) Body height 70 [in_i] 70 [in_i] [facility]) 5'10" Body weight 246.00 [lb_av] 246.00 [lb_av] [facility] T ([facility]) Diastolic blood pressure--supine 74 mm[Hg] 74 mm[Hg] [facility] ([facility]) Ra Systolic blood pressure--supine 112 mm[Hg] 112 mm[Hg] [facility] ([facility]) Ra Diastolic blood pressure--sitting 75 mm[Hg] 75 mm[Hg] [facility] ([facility]) large cuff, both arms Systolic blood pressure--sitting 114 mm[Hg] 114 mm[Hg] [facility] ([facility]) large cuff, both arms Respiratory rate 16 /min 16 /min [facility] ( [facility]) Heart rate 54 /min 54 /min [facility]) regular Body mass index (BMI) [Ratio] 33.7 kg/m2 33.7 k g/m2 [facility] ([facility]) Body height 70 [in_i] 70 [in_i] [facility] ([facility]) 5'10" Body weight 235.00 [lb_av] 235.00 [lb_av] [facility] T ([facility])
[2020-08-30 12:37] LABS: BASO # 0.1 10^3/uL (0.0-0.2); BASO % 0.9 % (0.0-1.0); EOS # 0.1 10^3/uL (0.0-0.5); EOS % 0.9 % (0.0-3.0); HEMOGLOBIN 15.4 g/dl (13.5-17.5); LYMPH # 2.4 10^3/uL (1.5-5.0); LYMPH % 29.1 % (24.0-44.0); MEAN CORPUSCULAR HEMOGLOBIN 28.6 pg (27.0-33.0); MEAN CORPUSCULAR HGB CONC 34.2 g/dl (32.0-36.5); MEAN CORPUSCULAR VOLUME 83.5 fl (80.0-96.0); MONO # 0.8 10^3/uL (0.0-0.8); MONO % 9.4 % (0.0-5.0); NEUTROPHILS # 4.8 10^3/uL (1.5-8.5); NEUTROPHILS % 59.3 % (36.0-66.0); PLATELET COUNT, AUTOMATED 236 10^3/uL (150-450); RED BLOOD COUNT 5.39 10^6/uL (4.30-6.10); WHITE BLOOD COUNT 8.1 10^3/uL (4.0-10.0)
--- OUTSIDE RECORDS SUMMARY | 2020-08-30 12:39 | CCD ---
Author Author [facility] Organization [facility] Address Unknown Phone Unavailable Care Team Providers Care Funeral Workers Name Role Phone Mandappa, Noemí CASAC Unavailable Unavailable Mandappa, Noemí CASAC Unavailable Unavailable Mandappa, Noemí CASAC Unavailable Unavailable Mandappa, Noemí CASAC Unavailable Unavailable VanArnam, W Juliana PA Unavailable Unavailable VanArnam, W Juliana PA Unavailable Unavailable VanArnam, W Juliana PA Unavailable Unavailable VanArnam, W Juliana PA Unavailable Unavailable VanArnam, W Juliana PA Unavailable Unavailable VanArnam, W Juliana PA Unavailable Unavailable VanArnam, W Juliana PA Unavailable Unavailable VanArnam, W Juliana PA Unavailable Unavailable VanArnam, W Juliana PA Unavailable Unavailable VanArnam, W Juliana PA Unavailable Unavailable VanArnam, W Juliana PA Unavailable Unavailable VanArnam, W Juliana PA Unavailable Unavailable VanArnam, W Juliana PA Unavailable Unavailable VanArnam, W Juliana PA Unavailable Unavailable VanArnam, W Juliana PA Unavailable Unavailable VanArnam, W Juliana PA Unavailable Unavailable VanArnam, W Juliana PA Unavailable Unavailable VanArnam, W Juliana PA Unavailable Unavailable VanArnam, W Juliana PA Unavailable Unavailable VanArnam, W Juliana PA Unavailable Unavailable VanArnam, W Juliana PA Unavailable Unavailable VanArnam, W Juliana PA Unavailable Unavailable VanArnam, W Juliana PA Unavailable Unavailable VanArnam, W Juliana PA Unavailable Unavailable VanArnam, W Juliana PA Unavailable Unavailable VanArnam, W Juliana PA Unavailable Unavailable VanArnam, W Juliana PA Unavailable Unavailable VanArnam, W Juliana PA Unavailable Unavailable VanArnam, W Juliana PA Unavailable Unavailable VanArnam, W Juliana PA Unavailable Unavailable VanArnam, W Juliana PA Unavailable Unavailable VanArnam, W Juliana PA Unavailable Unavailable VanArnam, W Juliana PA Unavailable Unavailable VanArnam, W Juliana PA Unavailable Unavailable VanArnam, W Juliana PA Unavailable Unavailable VanArnam, W Juliana PA Unavailable Unavailable VanArnam, W Juliana PA Unavailable Unavailable VanArnam, W Juliana PA Unavailable Unavailable VanArnam, W Juliana PA Unavailable Unavailable VanArnam, W Juliana PA Unavailable Unavailable MEGHANA-ED, ASHER DO Unavailable Unavailable MEGHANA-ED, AHSER DO Unavailable Unavailable MEGHANA-ED, ASHER DO Unavailable Unavailable MEGHANA-ED, ASHER DO Unavailable Unavailable MEGHANA-ED, ASHER DO Unavailable Unavailable MEGHANA-ED, ASHER DO Unavailable Unavailable MEGHANA-ED, ASHER DO Unavailable Unavailable MEGHANA-ED, ASHER DO Unavailable Unavailable MEGHANA-ED, ASHER DO Unavailable Unavailable MEGHANA-ED, ASHER DO Unavailable Unavailable MEGHANA-ED, ASHER DO Unavailable Unavailable MEGHANA-DE, ASHER DO Unavailable Unavailable MEGHANA-ED, ASHER DO [...] Unavailable Unavailable MEGHANA-ED, ASHER DO Unavailable Unavailable MEGHANA-DE, ASHER DO Unavailable Unavailable MEGHANA-ED, ASHER DO [...] BENIGNO DURAN Unavailable Unavailable KELLY, E BENIGNO MD Unavailable Unavailable Elisa KELLY MD Unavailable Unavailable Elisa KELLY MD Unavailable Unavailable Elisa KELLY MD Unavailable Unavailable Elisa KELLY MD Unavailable Unavailable Elisa KELLY MD Unavailable Unavailable Elisa KELLY MD Unavailable Unavailable Elisa KELLY MD Unavailable Unavailable Elisa KELLY MD Unavailable Unavailable Elisa KELLY MD Unavailable Unavailable Awilda IRWIN MD Unavailable Unavailable Awilda IRWIN MD Unavailable Unavailable Awilda IWRIN MD Unavailable Unavailable Awilda IRWIN MD Unavailable [...] Unavailable Unavailable Awilda IRWIN MD Unavailable Unavailable Awilad IRWIN MD Unavailable Unavailable Awilda IRWIN MD Unavailable Unavailable Awilda IRWIN MD Unavailable Unavailable Awilda IRWIN MD Unavailable Unavailable Awilda IRWIN MD Unavailable Unavailable Awilda IRWNI MD Unavailable Unavailable Awilda IRWIN MD Unavailable [...] is protected by Article 27-F of the [facility] Public Health law. If you continue you may have access to information: Regarding HIV / AIDS; Provided by facilities licensed or operated by the [facility] Office of Mental Health; or Provided by the [facility] Office for People With Developmental Disabilities. If such information is present, then the following [facility] mandated warning applies: This information has been [...] law may result in a fine or fpc sentence or both. A general authorization for the release of medical or other information is NOT sufficient authorization for further disc losure. Family History Family Member Name Family Member Gender Family Member Status Date o f Status Description Data Source(s) Unknown Male Problem [facility] ([facility] Unknown Female Problem [facility] ([facility]) Encounters Encounter Providers Location Date Indications Data Source(s ) Outpatient Attender: Juliana Sanders: ASHER BLACKWOOD DO 05/28/2020 10:18:53 AM EDT [facility] Recurring Patient Referrer: ED IRWIN MD 0 09:21:17 AM EDT [facility] Outpatient Attender: BENIGNO KELLY MD Main Office 05/18/2020 09:30:00 AM EDT [facility] ([facility]) Outpatient Attender: ED WAGNEReferrer: ASHER CHANDLER DO 04/09/2020 01:18:53 PM EDT [facility] Recurring Patient Referrer: ED IRWIN MD 0 01:22:23 PM EDT [facility] Recurring Patient Referrer: ED IRWIN MD 0 11:30:40 AM EDT [facility] Outpatient Attender: ED IRWIN MDReferrer: ASHER CHANDLER DO 03/12/2020 04:43:23 PM EDT [facility] Recurring Patient Referrer: ED IRWIN MD 0 02:08:59 PM EDT [facility] Recurring Patient Referrer: ED IRWIN MD 0 03:38:39 PM EDT [facility] Recurring Patient Referrer: ED IRWIN MD 0 03:06:57 PM EDT [facility] Recurring Patient Referrer: ED IRWIN MD 0 03:06:47 PM EDT [facility] Recurring Patient Referrer: ED IRWIN MD 0 03:06:31 PM EDT [facility] Recurring Patient Referrer: ED IRWIN MD 0 02:59:09 PM EDT [facility] Recurring Patient Referrer: ED IRWIN MD 0 01:32:00 PM EDT [facility] Recurring Patient Referrer: Noemí PHILLIPS 03/08/2020 01:28:08 PM EDT [facility] Recurring Patient Referrer: Noemí Gamboa CASAC 03/08/2020 01:24:37 PM EDT [facility] Outpatient Attender: BENIGNO KELLY MD Main Office 03/05/2020 09:30:00 AM EDT [facility] ([facility]) Medications Medication Brand Name Start Date Product Form Dose Route Admi nistrative Instructions Pharmacy Instructions Status Indications Reaction Description Data Source(s) Losartan Potassium 50 MG Oral Tablet Losartan Potassium 12/2019 12:00:00 AM EDT ORAL active [facility] ([facility] Insurance Providers Payer name Policy type / Coverage type Policy ID Covered democrat ID Covered democrat's relationship to altamirano Policy Alt[place]irano Plan Information UMR [facility] [id number] SP [id number] UMR/[employer] RISK [employer]NAGEMENT [id number] SP [id number] [employer] WORK COMP SP UMR [facility] [id number] SP [id number] UMR F [id number] SELF [id number] [employer] O [id number] S [id number] [employer] O UNAVAILABLE S UNAVAI LABLE UMR O [id number] S [id number] OTHER WORKERS COMPENSATI O [id number] O [id number] OTHER WORKERS COMPENSATION [id number] SP [id number] [employer] Commercial [id number] Self [id number] Umr Medigap Part B [id number] Self [id number] UMR [facility] [id number] SP [id number] [employer] Commercial [id number] Self [id number] [employer] Commercial [id number] Self [id number] Umr Medigap Part B [id number] Self [id number] [employer] Commercial [id number] Self [id number] UMR O [id number] S [id number] POMCO PPO O [id number] O [id number] [employer] Commercial [id number] Self [id number] [employer] Commercial [id number] Self [id number] POMCO [id number] SP [id number] [employer] Commercial [id number] Self [id number] [employer] Commercial [id number] Self [id number] [employer] Commercial [id number] Self [id number] [employer] Commercial [id number] Self [id number] [employer] Commercial [id number] Self [id number] [employer] Commercial [id number] Self [id number] Problems, Conditions, and Diagnoses Code Display Name Description Problem Type Effective Dates Data Source(s) 67571240 Benign hypertensive heart disease withou t congestive heart failure Benign hypertensive heart disease without congestive heart failure Problem 05/18/2020 12:00:00 AM EDT [facility] ([facility]) [id number] Electrocardiogram abnormal Electrocardiogram abnormal Problem 03/05/2020 12:00:00 AM EDT [facility] ([facility]) [id number] Palpitations Palpitations Problem 03/05/2020 12:00:00 A M EDT [facility] ([facility]) [id number] Chronic bronchitis Chronic bronchitis Problem 01/2020 12:00:00 AM EDT [facility] ([facility]) [id number] Obstructive sleep apnea syndrome Obstructive sle ep apnea syndrome Problem 03/05/2020 12:00:00 AM EDT [facility] ([facility] [id number] Essential hypertension Essential hypertension Problem 03/05/2020 12:00:00 AM EDT [facility] ([facility]) [id number] Dyspnea Dyspnea Problem 03/05/2020 12:00:00 AM ED T [facility] ([facility]) [id number] Precordial pain Precordial pain Problem 03/05/2020 12:0 0:00 AM EDT [facility] ([facility]) Surgeries/Procedures Procedure Description Date Indications Data Source(s) APPL MODALITY 1/> AREAS ELEC STIMJ EA 15 MIN 0 12:00:00 AM EDT [facility] ([facility]) THERAPEUTIC PX 1/> AREAS EACH 15 MIN EXERCISES 12:00:00 AM EDT [facility] ([facility] ) MANUAL THERAPY TQS 1/> REGIONS EACH 15 MINUTES 12:00:00 AM EDT [facility] ([facility] ) THERAPEUTIC PX 1/> AREAS EACH 15 MIN EXERCISES 12:00:00 AM EDT [facility] ([facility] ) MANUAL THERAPY TQS 1/> REGIONS EACH 15 MINUTES 12:00:00 AM EDT [facility] ([facility] ) THERAPEUTIC PX 1/> AREAS EACH 15 MIN EXERCISES 12:00:00 AM EDT [facility] ([facility] ) MANUAL THERAPY TQS 1/> REGIONS EACH 15 MINUTES 12:00:00 AM EDT [facility] ([facility] ) THERAPEUTIC PX 1/> AREAS EACH 15 MIN EXERCISES 12:00:00 AM EDT [facility] ([facility] ) MANUAL THERAPY TQS 1/> REGIONS EACH 15 MINUTES 12:00:00 AM EDT [facility] ([facility] ) THERAPEUTIC PX 1/> AREAS EACH 15 MIN EXERCISES 12:00:00 AM EDT [facility] ([facility] ) MANUAL THERAPY TQS 1/> REGIONS EACH 15 MINUTES 12:00:00 AM EDT [facility] ([facility] ) MANUAL THERAPY TQS 1/> REGIONS EACH 15 MINUTES 12:00:00 AM EDT [facility] ([facility] ) Physical Therapy Eval - Low Complexity 04/29/2020 12:0 0:00 AM EDT [facility] ([facility] ) CV STRS TST XERS&/OR RX CONT ECG PHYS SI&R 04/21/2020 12:00:00 AM EDT [facility] ([facility]) ECHO TTHRC R-T 2D W/WOM-MODE COMPL SPEC&COLR DOP 04/21 12:00:00 AM EDT [facility] ([facility]) XTRNL PT ACTIVATED ECG RECORD MONITOR 30 DAYS 04/12/20 12:00:00 AM EDT [facility] ([facility]) XTRNL PT ACTIVTD ECG DWNLD 30 DAYS PHYS R&I 04/12/2020 12:00:00 AM [facility]T [facility] ECG ROUTINE ECG W/LEAST 12 LDS W/I&R 03/05/2020 12:00: 00 AM EDT [facility] Results ID Date Data Source [id number] 05/28/2020 10:18:53 AM EDT [facility] PC[facility]: Deanne PiedraDOB: 1980Provider: Patricia Richmond: 05/21/2020 Reason For VisitMatthew Dorothea is an established patient here for follow up. patient states he has been going to PT and doing HEP. The patient is currently residing at home. W.C. DOI: 02/25/2020. Patient states the injury occurred while at work. Patient states he was trying to subdue a criminal. 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 Patient is working at this time [...] Done: 21May2020 Ordered;For: Health Maintenance; Ordered By: Juliana Richmond Performed: Due: 04Jun2020; Last Updated By: [...] document was dictated and electronically signed using Kiko software. A reasonable attempt at proof reading has been made to minimize errors. Please call with any questions. Signatures Electronically signed by : Lise Cherry; May 28 2020 8:30AM EST (Author) Electronically signed by : Ed Irwin M.D.; May 28 2020 10:18AM EST Name Value Range Interpretation Code Description Data Lizz rce(s) Supporting Document(s) ID Date Data Source [id number] 04/09/2020 01:18:53 PM EDT [facility]: [facility] R[facility]y: 1980Provider: Robi [...] Physical Therapy Evaluation and Treatment Status:Complete Done: [id number] Ordered;For: Thoracic back pain; Ordered By: Ed Irwin Performed: Order Comments: 02/25/20 thoracic spine Due: [id number]; Last Updated By: Lyly Mcguire; 04/09/2020 10:46:00 AMDuration: : Four WeeksPT Frequency : Two or three times a weekTraction Needed : NoSOS ROM and Strength : Range of motion and strengthening exercises.Heat Ultra and Modalities : Heat Ultrasound and modalities as indicatedEvaluate and Treat: : Please evaluate and treat as indicated. Work Note WC (SOS) Treatment Treatment Status: Complete Done: [id number] Ordered;For: Thoracic back pain; Ordered By: Ed Irwin Performed: Due: [id number]; Last Updated By: Lyly Mcguire; 04/09/2020 10:48:36 AMNotify Employer of Restrictions : It is your responsibility to advise your employer of these restrictions, please be aware they may or may not be able to accommodate your restrictions. 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 He wishes to proceed with physical therapy. I will send the patient for formal physical therapy. Requests PT Work / School NoteThe percentage of temporary impairment is 25%. The patient is working at this time. This document was dictated and electronically signed using Kiko software. A reasonable attempt at proof reading has been made to minimize errors. Please call with any questions. Signatures Electronically signed by : Ed Irwin M.D.; Apr 09 2020 1:18PM EST (Author) Name Value Range Interpretation Code Description Data Lizz rce(s) Supporting Document(s) ID Date Data Source [id number] 04/09/2020 12:17:00 PM EDT [facility] PATIENT MR#: [id number] NAME: Deanne Lynch TDATE OF : 1980REFERRING [...] stenosis.Age of findings: Likely chronic.Read by: Jarred Meredith by: Jarred Meredith Date: 04/09/2020 12:17:28 PMElectronically signed by: Jarred Sheffield signed: 04/09/2020 12:18:09 PM Name Value Range Interpretation Code Description Data [facility] Supporting Document(s) ID Date Data Source [id number] 03/12/2020 04:43:23 PM EDT [facility]: [facility] R[facility]y: 1980Provider: Robi [...] Done: 12Mar2020 Perform:SOS22; Due:26Mar2020; Last Updated By:Abigail Woodlal; 03/12/2020 2:29:05 PM;Ordered; For:Mid back pain; Ordered By:Ed Irwin;ari MRI (SOS) WC Referral Diagnostic Diagnostic Status: Hold For - WC Scheduling (SOS) Requested for: [id number] Ordered;For: Mid back pain; Ordered By: Ed Irwin Performed: Due: 26Mar2020; Last Updated By: Natalie Carlos; 03/12/2020 2:44:44 PMPatient will follow up with: : Dr Jones Ordered Contrast : 01: without gadoLaterality: : _Not Applicable Work Note (SOS) Treatment Treatment Status: Complete Done: [id number] Ordered;For: Health Maintenance; Ordered By: Ed Irwin [...] option reviewed. 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 He requires further work up to include [...] document was dictated and electronically signed using Kiko software. A reasonable attempt at proof reading has been made to minimize errors. Please call with any questions. Signatures Electronically signed by : Ed Irwin M.D.; Mar 12 2020 4:43PM EST (Author) Name Value Range Interpretation Code Description Data Lizz rce(s) Supporting Document(s) ID Date Data Source [id number] 02/25/2020 02:54:00 PM EDT [facility] ([facility]) Name Value Range Interpretation Code Description Data Lizz rce(s) Supporting Document(s) Albumin [Mass/volume] in Serum or Plasma 4.2 [facility] ([facility]) Alanine aminotransferase [Enzymatic activity/volume] in Serum or Pl asma 53 [facility] ([facility]) Calcium [Mass/volume] in Serum or Plasma 9.4 [facility] ([facility]) Carbon dioxide, total [Moles/volume] in Serum or Plasma 26 [facility] ([facility]) Potassium [Moles/volume] in Serum or Plasma 3.9 [facility] ([facility]) Chloride [Moles/volume] in Serum or Plasma 106 [facility] ([facility]) Alkaline phosphatase [Enzymatic activity/volume] in Serum or Plasma 1 11 [facility] Protein [Mass/volume] in Serum or Plasma 7.3 [facility] ([facility] Sodium 140 [facility] Urea nitrogen [Mass/volume] in Serum or Plasma 10 [facility] ([facility]) Aspartate aminotransferase [Enzymatic activity/volume] in Serum or Plasma 25 [facility] ([facility]) Glucose 94 70-100 [facility] Creatinine For GFR 1.61 [facility] ([facility] ID Date Data Source [id number] 02/25/2020 02:54:00 PM EDT [facility] ([facility]) Name Value Range Interpretation Code Description Data Lizz rce(s) Supporting Document(s) White Blood Count 8.42 4.3-10.9 [facility] ([facility]) Red Blood Count 5.29 4.70-6.20 [facility] ([facility]) Platelets 196 130-400 [facility] Hemoglobin 15.4 13.0-17.0 [facility] ([facility]) Hematocrit 44.2 39.0-50.0 [facility] ([facility]) Procedure Social History Code Duration Value Status Description Data Source(s ) Smoking 05/18/2020 12:00:00 AM EDT Patient is a former smoker completed Patient is a former smoker [facility] ([facility]) Vital Signs ID Date Data Source UNK Name Value Range Interpretation Code Description Data Source(s) Diastolic blood pressure--supine 76 mm[Hg] 76 mm[Hg] [facility] ([facility]) Systolic blood pressure--supine 128 mm[Hg] 128 mm[Hg] [facility] ([facility]) Diastolic blood pressure--sitting 72 mm[Hg] 72 mm[Hg] [facility] ([facility]) large cuff, Ra Systolic blood pressure--sitting 124 mm[Hg] 124 mm[Hg] [facility] ([facility]) large cuff, Ra Respiratory rate 16 /min 16 /min [facility] ( [facility]) Heart rate 56 /min 56 /min [facility] ([facility] regular Body mass index (BMI) [Ratio] 35.3 kg/m2 35.3 k g/m2 [facility] ([facility]) Body height 70 [in_i] 70 [in_i] [facility] 5'10" Body weight 246.00 [lb_av] 246.00 [lb_av] [facility] T ([facility]) Diastolic blood pressure--supine 74 mm[Hg] 74 mm[Hg] [facility] ([facility]) Ra Systolic blood pressure--supine 112 mm[Hg] 112 mm[Hg] [facility] ([facility]) Ra Diastolic blood pressure--sitting 75 mm[Hg] 75 mm[Hg] [facility] ([facility]) large cuff, both arms Systolic blood pressure--sitting 114 mm[Hg] 114 mm[Hg] [facility] ([facility]) large cuff, both arms Respiratory rate 16 /min 16 /min [facility] ( [facility]) Heart rate 54 /min 54 /min [facility] ([facility]) regular Body mass index (BMI) [Ratio] 33.7 kg/m2 33.7 k g/m2 [facility] ([facility]) Body height 70 [in_i] 70 [in_i] [facility] ([facility]) 5'10" Body weight 235.00 [lb_av] 235.00 [lb_av] [facility] T ([facility])
[2020-08-30 12:58] LABS: ALBUMIN 4.4 GM/DL (3.2-5.2); ALT/SGPT 52 U/L (12-78); BILIRUBIN,TOTAL 0.4 MG/DL (0.2-1.0); BLOOD UREA NITROGEN 12 MG/DL (7-18); CALCIUM LEVEL 9.8 MG/DL (8.5-10.1); CARBON DIOXIDE LEVEL 26 MEQ/L (21-32); CHLORIDE LEVEL 105 MEQ/L (98-107); CREATININE FOR GFR 1.23 MG/DL (0.70-1.30); GLOMERULAR FILTRATION RATE > 60.0 (>60); GLUCOSE, FASTING 96 MG/DL (70-100); SODIUM LEVEL 138 MEQ/L (136-145); TOTAL PROTEIN 7.7 GM/DL (6.4-8.2)
[2020-08-30] MEDS ORDERED: RALT40TA PO (13:13)
[2020-08-30] MEDS ORDERED: TRUVTAB PO (13:13)
[2020-08-30] MEDS ORDERED: BOOSTRIX/ADACEL VACCINE (DIPHTH/PERTUSS/ACELL/TETANUS) 0.5ML SYR IM ONE (13:15)
[2020-08-30] MEDS ORDERED: EXPOSURE KIT-ADULT 7 DAY SUPPLY PO ONE (13:15)
[2020-08-30 13:37] LABS: HEPATITIS B SURFACE ANTIBODY POSITIVE (POSITIVE)
[2020-08-30 13:47] LABS: HEPATITIS B SURFACE ANTIGEN NEGATIVE (NEGATIVE)
[2020-08-30] MEDS ORDERED: TRUVADA 200MG/300MG TABLET PO ONE (14:00)
[2020-08-30] MEDS ORDERED: RALTEGRAVIR 400 MG TAB (ISENTRESS) PO ONE (14:00)
[2020-08-30 14:03] VITALS: BP 144/96
[2020-08-30 14:16] LABS: HEPATITIS C VIRUS ABY INDEX < 0.0 INDEX (<0.8); HIV 1&2 SCREEN CENTAUR NEGATIVE (NEGATIVE)
== END 2020-08-30 14:03 | disposition home or self-care (01) ==
LOC: M ED 11:56
DX: S61.431A Puncture wound without foreign body of right hand, initial encounter (principal); W46.1XXA Contact with contaminated hypodermic needle, initial encounter; Y92.9 Unspecified place or not applicable; Y93.9 Activity, unspecified; Y99.0 Civilian activity done for income or pay; Z77.21 Contact with and (suspected) exposure to potentially hazardous body fluids; I10 Essential (primary) hypertension; G47.33 Obstructive sleep apnea (adult) (pediatric); Z88.0 Allergy status to penicillin

== ENCOUNTER → 2020-11-30 | Outpatient (CLI) | payer OTHER ==
[~2020-11-30] MED LIST changes: +RALT40TA PO; -RALTEGRAVIR 400 MG TAB (ISENTRESS) PO SCH; -TRUVADA 200MG/300MG TABLET PO SCH; +TRUVTAB PO
[2020-11-30 12:16] LABS: BASO # 0.1 10^3/uL (0.0-0.2); BASO % 0.7 % (0.0-1.0); EOS # 0.1 10^3/uL (0.0-0.5); HEMATOCRIT 47.6 % (42.0-52.0); HEMOGLOBIN 16.3 g/dl (13.5-17.5); LYMPH # 2.5 10^3/uL (1.5-5.0); LYMPH % 35.7 % (24.0-44.0); MEAN CORPUSCULAR HEMOGLOBIN 29.4 pg (27.0-33.0); MEAN CORPUSCULAR HGB CONC 34.2 g/dl (32.0-36.5); MEAN CORPUSCULAR VOLUME 85.8 fl (80.0-96.0); MONO # 0.8 10^3/uL (0.0-0.8); MONO % 12.2 % (2.0-8.0); NEUTROPHILS # 3.5 10^3/uL (1.5-8.5); PLATELET COUNT, AUTOMATED 178 10^3/uL (150-450); RED BLOOD COUNT 5.55 10^6/uL (4.30-6.10); WHITE BLOOD COUNT 6.9 10^3/uL (4.0-10.0)
[2020-11-30 12:35] LABS: HEMOGLOBIN A1c 5.1 %
[2020-11-30 12:48] LABS: ALBUMIN 4.3 GM/DL (3.2-5.2); ALT/SGPT 55 U/L (12-78); BILIRUBIN,TOTAL 0.8 MG/DL (0.2-1.0); BLOOD UREA NITROGEN 13 MG/DL (7-18); CALCIUM LEVEL 9.8 MG/DL (8.5-10.1); CARBON DIOXIDE LEVEL 26 MEQ/L (21-32); CHLORIDE LEVEL 106 MEQ/L (98-107); CHOLESTEROL LEVEL 209 MG/DL (<200); CHOLESTEROL RISK RATIO 3.943 (<5); CREATININE FOR GFR 1.12 MG/DL (0.70-1.30); FREE T4 1.18 NG/DL (0.76-1.46); GLOMERULAR FILTRATION RATE > 60.0 (>60); GLUCOSE, FASTING 86 MG/DL (70-100); HDL CHOLESTEROL 53 MG/DL (>40); LDL CHOLESTEROL 131 MG/DL (<100); NON-HDL-C 156 MG/DL; POTASSIUM SERUM 4.2 MEQ/L (3.5-5.1); SODIUM LEVEL 138 MEQ/L (136-145); TOTAL PROTEIN 7.7 GM/DL (6.4-8.2); TRIGLYCERIDES LEVEL 127 MG/DL (<150)
[2020-11-30 13:03] LABS: HEPATITIS B SURFACE ANTIGEN NEGATIVE (NEGATIVE)
[2020-11-30 13:31] LABS: HEPATITIS B CORE ANTIBODY IGM NEGATIVE (NEGATIVE)
[2020-11-30 13:32] LABS: HIV 1&2 SCREEN CENTAUR NEGATIVE (NEGATIVE)
[2020-11-30 13:33] LABS: HEPATITIS A ANTIBODY IGM NEGATIVE (NEGATIVE)
== END ==
LOC: M WUC 09:01
PROVIDERS: ATTEND Physician Assistant
DX: Z00.00 Encounter for general adult medical examination without abnormal findings (principal); I10 Essential (primary) hypertension; W46.1XXA Contact with contaminated hypodermic needle, initial encounter; E66.8 Other obesity

== ENCOUNTER → 2021-02-16 | Outpatient (CLI) | payer OTHER, SELFPAY ==
[~2021-02-16] MED LIST changes: +EMTR1TAB16 PO; -TRUVTAB PO
--- NOTE | 2021-02-16 13:34 | REP ---
INDICATION: BILATERAL KNEE PAIN. COMPARISON: None. TECHNIQUE: Bilateral knee radiographs, total of 10 views. FINDINGS: Five views of the left knee demonstrate non articular spurring at the superior pole of the patella at the quadriceps tendon insertion. There is mild articular spurring at the superior pole of patella on the lateral view. The left knee radiographs are otherwise unremarkable. On the right, there is osteoarthritic spurring of the superior and inferior pole the patella and on on the sunrise view, laterally. There is also lateral compartment and medial compartment right knee osteoarthritic spurring. Joint spaces are preserved. IMPRESSION: 3 compartment right knee osteoarthritis. Subtle osteoarthritic spurring of the patella on the left. Non articular patellar spurring is also noted.. <Electronically signed by Rafael Martinez > 02/16/21 [id number]
== END ==
LOC: M PLAIMG 10:35
PROVIDERS: ATTEND Nurse Practitioner Family
DX: M25.569 Pain in unspecified knee (principal)

== ENCOUNTER → 2021-07-14 | Outpatient (REF) | payer OTHER | LOC: M LAB REF 16:53 | PROVIDERS: ATTEND Family Medicine | DX: R59.0 Localized enlarged lymph nodes (principal) ==

== ENCOUNTER → 2022-10-25 | Outpatient (CLI) | payer OTHER | LOC: M RAD 08:33 | PROVIDERS: ATTEND Family Medicine | DX: D17.1 Benign lipomatous neoplasm of skin and subcutaneous tissue of trunk (principal) ==

== ENCOUNTER → 2022-10-27 | Outpatient (REF) | payer OTHER | LOC: M LAB REF 15:16 | PROVIDERS: ATTEND Surgery | DX: D17.1 Benign lipomatous neoplasm of skin and subcutaneous tissue of trunk (principal) ==

== ENCOUNTER → 2023-07-11 | Outpatient (REF) | payer OTHER ==
[2023-07-11 19:18] LABS: BASO # 0.1 10^3/uL (0.0-0.2); BASO % 0.7 % (0.0-1.0); EOS # 0.1 10^3/uL (0.0-0.5); HEMATOCRIT 46.5 % (42.0-52.0); HEMOGLOBIN 15.9 g/dl (13.5-17.5); LYMPH % 34.3 % (24.0-44.0); MEAN CORPUSCULAR HEMOGLOBIN 29.7 pg (27.0-33.0); MEAN CORPUSCULAR HGB CONC 34.2 g/dl (32.0-36.5); MEAN CORPUSCULAR VOLUME 86.8 fl (80.0-96.0); MONO # 0.6 10^3/uL (0.0-0.8); MONO % 7.1 % (2.0-8.0); NEUTROPHILS # 4.9 10^3/uL (1.5-8.5); NEUTROPHILS % 56.4 % (36.0-66.0); PLATELET COUNT, AUTOMATED 230 10^3/uL (150-450); RED BLOOD COUNT 5.36 10^6/uL (4.30-6.10); WHITE BLOOD COUNT 8.6 10^3/uL (4.0-10.0)
[2023-07-11 19:47] LABS: ALBUMIN 4.2 G/DL (3.2-5.2); ALKALINE PHOSPHATASE 94 U/L (46-116); ALT/SGPT 34 U/L (7.0-40); AST/SGOT 19 U/L (<34); BILIRUBIN,TOTAL 0.9 MG/DL (0.3-1.2); BLOOD UREA NITROGEN 10 MG/DL (9-23); CALCIUM LEVEL 9.2 MG/DL (8.5-10.1); CARBON DIOXIDE LEVEL 29 MMOL/L (20-31); CHLORIDE LEVEL 105 MMOL/L (98-107); CHOLESTEROL LEVEL 183 MG/DL (<200); CHOLESTEROL RISK RATIO 4.16 (<5); CREATININE FOR GFR 1.02 MG/DL (0.70-1.30); GLOMERULAR FILTRATION RATE > 60.0 (>60); GLUCOSE, FASTING 77 MG/DL (60-100); HDL CHOLESTEROL 43.9 MG/DL (>40); LDL CHOLESTEROL 114.5 MG/DL (<100); NON-HDL-C 139.1 MG/DL; POTASSIUM SERUM 3.8 MMOL/L (3.5-5.1); SODIUM LEVEL 142 MMOL/L (136-145); TOTAL PROTEIN 7.3 G/DL (5.7-8.2); TRIGLYCERIDES LEVEL 123 MG/DL (<150)
== END ==
LOC: M LABWUC 18:55 → M LAB REF 18:55
PROVIDERS: ATTEND Family Medicine
DX: I10 Essential (primary) hypertension (principal)

== ENCOUNTER → 2024-04-03 | Outpatient (CLI) | payer OTHER ==
[2024-04-03 18:53] LABS: HEMATOCRIT 47.7 % (42.0-52.0); HEMOGLOBIN 16.2 g/dl (13.5-17.5); MEAN CORPUSCULAR HEMOGLOBIN 29.7 pg (27.0-33.0); MEAN CORPUSCULAR VOLUME 87.5 fl (80.0-96.0); PLATELET COUNT, AUTOMATED 216 10^3/uL (150-450); RED BLOOD COUNT 5.45 10^6/uL (4.30-6.10); WHITE BLOOD COUNT 7.8 10^3/uL (4.0-10.0)
[2024-04-03 19:04] LABS: HEMOGLOBIN A1c 5.4 % (4.0-6.0)
[2024-04-03 19:27] LABS: ALKALINE PHOSPHATASE 105 U/L (46-116); ALT/SGPT 50 U/L (7.0-40); AST/SGOT 20 U/L (<34); BILIRUBIN,TOTAL 0.4 MG/DL (0.3-1.2); BLOOD UREA NITROGEN 10 MG/DL (9-23); CALCIUM LEVEL 9.6 MG/DL (8.5-10.1); CARBON DIOXIDE LEVEL 28 MMOL/L (20-31); CHLORIDE LEVEL 105 MMOL/L (98-107); CHOLESTEROL LEVEL 195 MG/DL (<200); CHOLESTEROL RISK RATIO 4.12 (<5); CREATININE FOR GFR 1.15 MG/DL (0.70-1.30); GLOMERULAR FILTRATION RATE > 60.0 (>60); GLUCOSE, FASTING 88 MG/DL (60-100); HDL CHOLESTEROL 47.3 MG/DL (>40); LDL CHOLESTEROL 125.3 MG/DL (<100); NON-HDL-C 147.7 MG/DL; POTASSIUM SERUM 4.6 MMOL/L (3.5-5.1); PSA SCREENING 0.88 NG/ML (< 4.00); SODIUM LEVEL 140 MMOL/L (136-145); TOTAL PROTEIN 7.1 G/DL (5.7-8.2); TRIGLYCERIDES LEVEL 112 MG/DL (<150)
[2024-04-03 19:30] LABS: FREE T4 1.32 NG/DL (0.89-1.76)
[2024-04-03 20:18] LABS: ATYPICAL LYMPH 23 % (0-5); EOSINOPHILS 3 % (0-3); LYMPHOCYTES 25 % (16-44); MONOCYTES 5 % (0-5); NEUTROPHILS 44 % (28-66); PLATELET ESTIMATE NORMAL (NORMAL)
== END ==
LOC: M WUC 13:31
PROVIDERS: ATTEND Physician Assistant
DX: R35.1 Nocturia (principal); Z13.29 Encounter for screening for other suspected endocrine disorder; Z13.220 Encounter for screening for lipoid disorders
CPT/HCPCS: 36415; 80053; 80061; 83036; 84439; 84443; 85025; G0103

== ENCOUNTER → 2024-04-21 | Outpatient (CLI) | payer OTHER ==
[2024-04-21 16:53] LABS: BASO # 0.1 10^3/uL (0.0-0.2); EOS # 0.1 10^3/uL (0.0-0.5); EOS % 1.5 % (0.0-3.0); HEMATOCRIT 48.3 % (42.0-52.0); HEMOGLOBIN 16.5 g/dl (13.5-17.5); LYMPH # 3.2 10^3/uL (1.5-5.0); LYMPH % 40.9 % (24.0-44.0); MEAN CORPUSCULAR HEMOGLOBIN 29.5 pg (27.0-33.0); MEAN CORPUSCULAR HGB CONC 34.2 g/dl (32.0-36.5); MEAN CORPUSCULAR VOLUME 86.4 fl (80.0-96.0); MONO # 0.6 10^3/uL (0.0-0.8); MONO % 7.1 % (2.0-8.0); NEUTROPHILS # 3.8 10^3/uL (1.5-8.5); PLATELET COUNT, AUTOMATED 213 10^3/uL (150-450); RED BLOOD COUNT 5.59 10^6/uL (4.30-6.10); WHITE BLOOD COUNT 7.8 10^3/uL (4.0-10.0)
[2024-04-21 17:32] LABS: C REACTIVE PROTEIN QUANTITATIV < 0.40 MG/DL (<1.0); LDH LACTATE DEHYDROGENASE 167 U/L (120-246)
[2024-04-21 17:51] LABS: MONO REFLEX EBV COMP NEGATIVE (NEGATIVE)
[2024-04-21 19:51] LABS: ATYPICAL LYMPH 10 % (0-5); BASOPHILS 1 % (0-1); EOSINOPHILS 1 % (0-3); LYMPHOCYTES 32 % (16-44); MONOCYTES 5 % (0-5); NEUTROPHILS 51 % (28-66); PLATELET ESTIMATE NORMAL (NORMAL)
[2024-04-21 20:00] LABS: ERYTHROCYTE SEDIMENTATION RATE 15 mm/hr (0-15)
== END ==
LOC: M WUC 12:54
PROVIDERS: ATTEND Physician Assistant
DX: D72.89 Other specified disorders of white blood cells (principal); R74.01 Elevation of levels of liver transaminase levels

== ENCOUNTER → 2024-04-29 | Outpatient (CLI) | payer OTHER ==
[2024-05-02 07:38] LABS: CYTOGENETICS FISH FOR PATH SO See Pathology Report; JAK2 MUTATIONS FOR PATH SENDOU See Pathology Report
== END ==
LOC: M WUC 08:18
PROVIDERS: ATTEND Physician Assistant
DX: D72.89 Other specified disorders of white blood cells (principal)

== ENCOUNTER → 2024-08-26 | Outpatient (CLI) | payer OTHER ==
[~2024-08-26] MED LIST changes: +LOSA50TA28
[2024-08-26 16:15] LABS: LIPASE 38 U/L (12-53)
[2024-08-26 16:16] LABS: BASO # 0.1 10^3/uL (0.0-0.2); BASO % 0.9 % (0.0-1.0); C REACTIVE PROTEIN QUANTITATIV < 0.50 MG/DL (<1.0); EOS # 0.1 10^3/uL (0.0-0.5); EOS % 1.1 % (0.0-3.0); HEMATOCRIT 45.1 % (42.0-52.0); HEMOGLOBIN 15.5 g/dl (13.5-17.5); LYMPH # 3.4 10^3/uL (1.5-5.0); MEAN CORPUSCULAR HEMOGLOBIN 28.9 pg (27.0-33.0); MEAN CORPUSCULAR HGB CONC 34.4 g/dl (32.0-36.5); MONO # 0.5 10^3/uL (0.0-0.8); NEUTROPHILS # 3.4 10^3/uL (1.5-8.5); NEUTROPHILS % 45.2 % (36.0-66.0); PLATELET COUNT, AUTOMATED 227 10^3/uL (150-450); RED BLOOD COUNT 5.37 10^6/uL (4.30-6.10); WHITE BLOOD COUNT 7.5 10^3/uL (4.0-10.0)
[2024-08-26 16:17] LABS: ALKALINE PHOSPHATASE 81 U/L (40-129); ALT/SGPT 39 U/L (7.0-40); AST/SGOT 17 U/L (<34); BILIRUBIN,DIRECT 0.2 MG/DL (<0.4); BILIRUBIN,TOTAL 0.7 MG/DL (0.3-1.2); BLOOD UREA NITROGEN 12 MG/DL (9-23); CALCIUM LEVEL 9.1 MG/DL (8.5-10.1); CARBON DIOXIDE LEVEL 28 MMOL/L (20-31); CHLORIDE LEVEL 104 MMOL/L (98-107); CREATININE FOR GFR 1.17 MG/DL (0.70-1.30); GLOMERULAR FILTRATION RATE > 60.0 (>60); GLUCOSE, FASTING 97 MG/DL (60-100); POTASSIUM SERUM 3.8 MMOL/L (3.5-5.1); SODIUM LEVEL 140 MMOL/L (136-145)
[2024-08-26 16:18] LABS: IMMUNOGLOBULIN A 139.6 MG/DL (40-350); IMMUNOGLOBULIN G 876 MG/DL (650-1600); RHEUMATOID FACTOR QUANT 49.9 IU/ML (<14)
[2024-08-26 16:22] LABS: ERYTHROCYTE SEDIMENTATION RATE 15 mm/hr (0-15)
[2024-08-26 16:26] LABS: APPEARANCE, URINE HAZY (CLEAR); BACTERIA, URINE AUTO NEGATIVE (NEGATIVE); BILIRUBIN, URINE AUTO NEGATIVE (NEGATIVE); BLOOD, URINE BLOOD NEGATIVE (NEGATIVE); COLOR, URINE YELLOW (YELLOW); GLUCOSE, URINE (UA) AUTO NEGATIVE (NEGATIVE); KETONE, URINE AUTO NEGATIVE (NEGATIVE); LEUKOCYTE ESTERASE, URINE AUTO NEGATIVE (NEGATIVE); MUCUS, URINE SMALL (NEGATIVE); NITRITE, URINE AUTO NEGATIVE (NEGATIVE); PROTEIN, URINE AUTO NEGATIVE (NEGATIVE); RBC, URINE AUTO 0 /HPF (0-3); SQUAMOUS EPITHELIAL CELL UR AU 0 /HPF (0-6); UROBILINOGEN, URINE AUTO 0.2 mg/dL (0.0-2.0); WBC, URINE AUTO 2 /HPF (0-3)
[2024-08-26 16:34] LABS: IMMUNOGLOBULIN M 334.6 MG/DL (50-300); URIC ACID 4.1 MG/DL (3.7-9.2)
[2024-08-28 11:37] LABS: DRVV SCREEN 37.3 SECONDS
[2024-08-28 11:47] LABS: PTT LUPUS TYPE ANTICOAG SCREEN 0.91 (0-1.20)
[2024-08-28 14:02] LABS: EBV AB TO NUCLEAR ANTIGEN > 600.00 U/mL (<18.00); EBV VIRAL CAPSID AG IGM < 36.00 U/mL (<36.00)
[2024-08-29 22:02] LABS: CYCLIC CITRULLINATED PEPTIDE < 16 UNITS (<20)
[2024-09-02 16:08] LABS: ANTI DS-DNA AB NEGATIVE (NEGATIVE)
[2024-09-03 09:52] LABS: ANA PATTERN Nuclear, Speckled (NEGATIVE); ANA SCREEN, IFA POSITIVE (NEGATIVE); ANA TITER 1:40 titer (<1:40)
== END ==
LOC: M WUC 13:51
PROVIDERS: ATTEND Physician Assistant
DX: M54.50 Low back pain, unspecified (principal); R53.83 Other fatigue

== ENCOUNTER → 2024-08-29 | Outpatient (CLI) | payer OTHER | LOC: M RAD 15:01 | PROVIDERS: ATTEND Physician Assistant | DX: M54.50 Low back pain, unspecified (principal) ==

== ENCOUNTER → 2024-09-12 | Outpatient (CLI) | payer OTHER | LOC: M RAD 14:42 | PROVIDERS: ATTEND Physician Assistant | DX: R91.8 Other nonspecific abnormal finding of lung field (principal); I25.10 Atherosclerotic heart disease of native coronary artery without angina pectoris; I25.84 Coronary atherosclerosis due to calcified coronary lesion ==

== ENCOUNTER → 2025-02-18 | Outpatient (CLI) | payer OTHER | LOC: M WUC 12:50 | PROVIDERS: ATTEND Internal Medicine Rheumatology | DX: R41.89 Other symptoms and signs involving cognitive functions and awareness (principal); R53.83 Other fatigue; R52 Pain, unspecified; R76.8 Other specified abnormal immunological findings in serum ==

== ENCOUNTER → 2025-02-18 | Outpatient (REF) | payer OTHER ==
[2025-02-18 16:07] LABS: TOTAL PROTEIN,RANDOM URINE 20.4 MG/DL (0.0-14.0)
[2025-02-18 16:21] LABS: AMORPHOUS SEDIMENT SMALL (NEGATIVE); APPEARANCE, URINE TURBID (CLEAR); BACTERIA, URINE AUTO 1+ (NEGATIVE); BILIRUBIN, URINE AUTO NEGATIVE (NEGATIVE); BLOOD, URINE BLOOD 1+ (NEGATIVE); GLUCOSE, URINE (UA) AUTO NEGATIVE (NEGATIVE); KETONE, URINE AUTO NEGATIVE (NEGATIVE); LEUKOCYTE ESTERASE, URINE AUTO NEGATIVE (NEGATIVE); MUCUS, URINE SMALL (NEGATIVE); NITRITE, URINE AUTO NEGATIVE (NEGATIVE); PROTEIN, URINE AUTO NEGATIVE (NEGATIVE); RBC, URINE AUTO 0 /HPF (0-3); SPECIFIC GRAVITY URINE AUTO 1.024 (1.002-1.035); SQUAMOUS EPITHELIAL CELL UR AU 0 /HPF (0-6); UROBILINOGEN, URINE AUTO 0.2 mg/dL (0.0-2.0); WBC, URINE AUTO 1 /HPF (0-3)
[2025-02-18 18:20] LABS: C REACTIVE PROTEIN QUANTITATIV < 0.50 MG/DL (<1.0); COMPLEMENT C4 14.6 MG/DL (12-36)
[2025-02-18 18:21] LABS: ALT/SGPT 52 U/L (7.0-40); AST/SGOT 31 U/L (<34); CALCIUM LEVEL 9.0 MG/DL (8.5-10.1); CARBON DIOXIDE LEVEL 26 MMOL/L (20-31); CHLORIDE LEVEL 102 MMOL/L (98-107); CREATININE FOR GFR 1.12 MG/DL (0.70-1.30); GLOMERULAR FILTRATION RATE 82.6 (>60); POTASSIUM SERUM 4.0 MMOL/L (3.5-5.1); SODIUM LEVEL 140 MMOL/L (136-145)
[2025-02-18 18:26] LABS: BASO # 0.1 10^3/uL (0.0-0.2); BASO % 0.7 % (0.0-1.0); EOS # 0.1 10^3/uL (0.0-0.5); EOS % 1.3 % (0.0-3.0); LYMPH # 3.0 10^3/uL (1.5-5.0); LYMPH % 44.4 % (24.0-44.0); MONO # 0.6 10^3/uL (0.0-0.8); MONO % 9.4 % (2.0-8.0); NEUTROPHILS # 2.9 10^3/uL (1.5-8.5); NEUTROPHILS % 43.9 % (36.0-66.0); PLATELET COUNT, AUTOMATED 217 10^3/uL (150-450)
[2025-02-18 18:32] LABS: ERYTHROCYTE SEDIMENTATION RATE 20 mm/hr (0-15)
[2025-02-18 18:53] LABS: HIV 1&2 SCREEN NEGATIVE (NEGATIVE)
[2025-02-18 19:02] LABS: HEPATITIS C VIRUS ABY INDEX < 0.02 INDEX (<0.8)
== END ==
LOC: M SFHCRHEU 12:15
PROVIDERS: ATTEND Internal Medicine Rheumatology
DX: R41.89 Other symptoms and signs involving cognitive functions and awareness (principal); R53.83 Other fatigue; R52 Pain, unspecified; R76.8 Other specified abnormal immunological findings in serum